=== PATIENT | male | born 1960 | race Caucasian/White ===

== ENCOUNTER → 2022-09-23 08:11 | Outpatient (BNVA) | payer OTHER, SELFPAY | PROVIDERS: PCP Internal Medicine; Visit Provider Hospitalist | DX: J98.4 Other disorders of lung (principal); J43.9 Emphysema, unspecified; R91.8 Other nonspecific abnormal finding of lung field; F17.210 Nicotine dependence, cigarettes, uncomplicated | CPT/HCPCS: 99202 ==

== ENCOUNTER 2022-12-08 09:45 | Outpatient (AMB) | payer OTHER, SELFPAY ==
[2022-12-08 09:55] VITALS: BP 110/70; PULSE 54; O2SAT 96; BMI 30.4
--- NOTE | 2022-12-08 09:55 | MHC.OFFVIS ---
Intake Vital Signs 12/08/22 09:55 Height 5 ft 11.5 in Weight 221 lb BMI 30.4 BP 110/70 Blood Pressure Location Lt brachial Position Standing Pulse 54 Pulse Source Pulse Oximeter Pulse Oximetry (%) 96 Oxygen Delivery Method Room Air Intake Visit Reasons: Abnormal CT Chest Intake Note: pt is here for follow up of ct scan, no issues feels good. Allergies No Known Allergies Allergy (Verified 09/23/22 08:30) Do you need a note to return to daycare/school/sports/work: No HPI HPI Comments History of Present Illness Details The patient is a 62-year-old gentleman with a history of tobacco dependency who apparently was in her usual state health until back in April when he started having some hemoptysis. The patient spontaneously improved in that required any antibiotics at that point. Subsequently June he did undergo CT scan of the chest at [facility] which I personally reviewed with him. He has multiple pulmonary nodules in the left hemithorax and some of them appear to be surrounded by ground-glass. The nodules varying size between 6-9 mm in size. In addition to that in the hilum appears to be some thickening around the distal left mainstem bronchus and the left upper lobe bronchi. This area is will be fine appears to be thicken with some sites narrowing of the airway. Based on the pulmonary nodules in the abnormal hilar density the patient did undergo a PET scan which we also personally reviewed. It appears that the hilar density had an SUV of 3.1 and also has some lymphadenopathy primarily in the cervical lymph nodes were about also had mild FDG activity. The actual pulmonary nodules may have been some below the accuracy of PET scan but all the nodules were with an SUV of 1.2. One of the nodules actually resolved. His hemoptysis has also resolved. Patient otherwise feels good. His only complaint is when he lays flat he gets short of breath. Moderate severity. He can and his belly and he does a lot better. The patient denies any significant daytime drowsiness. After reviewing all the data I did recommend the patient undergo endobronchial ultrasound bronchoscopy to better address the hilar soft tissue abnormality. Although, the patient is already scheduled to undergo surgery in [place]. In explained to the patient that she was still strongly that patient should undergo some type of visualization of the airways and that should be done by surgeon and should also consider getting microbiology for complete evaluation. The patient is already on Breo and also on rescue inhaler. I did recommend he undergo pulmonary function studies. At this point will have to wait for him to recover after surgery to be able to do them accurately. 12/08/2022 the patient is here for pulmonary follow-up visit. Since we last spoke he did follow-up with thoracic surgery. He underwent initially a resection I believe a wedge resection. I do not have the postop report at this time. And pathology was sent. Ultimately was stating the hospital had worsening hemoptysis and the patient was then taken back to the endoscopy suite in had a bronchoscopy. It was documented the attic growth in the left lower lobe although I do not have the pictures. He had a biopsy done unfortunate resulting in bleeding and therefore likely minimal amount of biopsies that were able to be done. Again I do not have the pathology. His hemoptysis has settled down. In I do not have any other results. Clinically the patient is still having some discomfort from his surgery. I am concerned that he still has is Croke that is potentially blocking part of his airway. Therefore, will have to await for will get the pathology and then reimage the area. He may need a repeat bronchoscopy to assess the area as well. The patient ultimately may need additional interventions to remove any growth there may be impacting his airway patency. From a respiratory status doing well we did go for brief walking oximetry was able to maintain a pulse ox 95%. [facility] Medical History (Updated 09/23/22 @ 09:05 by Philippe Palumbo MD) Emphysema lung Hilar density Pulmonary nodules Tobacco dependence Social History (Updated 12/08/22 @ 10:01 by CHRISTIANO Lopez) Patient Tobacco Use Status: Current everyday Tobacco user Tobacco use type: Cigarette and Cigar Cigarettes Per Day: 4 Years Smoked: 40 Years Review of Systems Const Denies weight loss Eyes Denies blurry vision ENT Denies bleeding gums and Denies epistaxis Card Reports chest pain Resp Denies change in phlegm color and Denies hemoptysis GI Reports no additional complaints Musc Reports no additional complaints Skin/Breast Denies rash Neuro Reports no additional complaints Endo Reports no additional complaints Prem/Lymph Denies easy bleeding, Denies easy bruising and Denies lymphadenopathy Aller/Immun Reports no additional complaints Physical Exam Vital Signs: Last Vital Signs Pulse 54 12/08/22 09:55 BP 110/70 12/08/22 09:55 Pulse Ox 96 12/08/22 09:55 Oxygen Delivery Method Room Air 12/08/22 09:55 BMI result Body Mass Index 30.4 Const General: comfortable HEENT Head: Yes normocephalic Neck Neck: Yes supple Chest Chest palpation & inspection: normal inspection of the chest Resp Effort & Inspection: normal respiratory effort Auscultation: clear to auscultation bilaterally Cardio Rate: regular rate Rhythm: regular rhythm Heart sounds: S1 normal heart sound present and S2 normal heart sound present GI Palpation (GI): Soft to palpation Extrem General: Yes no clubbing, cyanosis or edema Assessment & Plan Assessment & Plan (1) Hilar density: Code(s): J98.4 - Other disorders of lung (2) Pulmonary nodules: Code(s): R91.8 - Other nonspecific abnormal finding of lung field (3) Emphysema lung: Code(s): J43.9 - Emphysema, unspecified (4) Tobacco dependence: Code(s): F17.200 - Nicotine dependence, unspecified, uncomplicated Plan Need to review the op note and pathology for both the bronchoscopy and surgery. Ultimately, noted to have an endobronchial density in the LLL thatn may need additoinal intervention. continue Trelegy JOHN as needed PFTs once able Tobacco cessation F/U 2-3 months or sooner depending on the pathology Coding Level of Care Code Est Pt Level 4 (32776) Diagnoses Hilar density J98.4 Pulmonary nodules R91.8 Emphysema lung J43.9 Tobacco dependence F17.200 Time Spent (min) 20
== END 2022-12-08 10:46 | disposition home or self-care (01) ==
PROVIDERS: PCP Internal Medicine; Visit Provider Hospitalist
DX: J98.4 Other disorders of lung (principal); R91.8 Other nonspecific abnormal finding of lung field; J43.9 Emphysema, unspecified; F17.200 Nicotine dependence, unspecified, uncomplicated
CPT/HCPCS: 99214

== ENCOUNTER → 2022-12-08 09:45 | Outpatient (BNVA) | payer OTHER, SELFPAY | PROVIDERS: Visit Provider Hospitalist | DX: J98.4 Other disorders of lung (principal); J43.9 Emphysema, unspecified; R91.8 Other nonspecific abnormal finding of lung field; F17.210 Nicotine dependence, cigarettes, uncomplicated | CPT/HCPCS: 99212 ==

== ENCOUNTER 2023-02-03 10:28 | Outpatient (REF) | payer OTHER, SELFPAY ==
--- NOTE | ~2023-02-03 | XR_ITS ---
EXAMINATION: XR CHEST 2 VIEW CLINICAL INFORMATION: Difficulty breathing a few months ago COMPARISON: None TECHNIQUE: PA and lateral views of the chest obtained. FINDINGS: The lungs are clear. There are no pleural effusions. The cardiomediastinal silhouette is normal. Surgical clips are noted in the left axilla. XR/XR chest 2V IMPRESSION: No acute cardiopulmonary disease.
[2023-02-03 12:21] LABS: MANUAL DIFF FLAG NO
[2023-02-03 13:31] LABS: Basophils Percent Auto 0.4 % (0-2); Eosinophils Absolute Auto 0.3 X10*3/uL (0.0-0.4); Eosinophils Percent Auto 3.7 % (0-4); Hematocrit 50.9 % (42.0-52.0); Imm Gran Abs Auto 0.02 X10*3/uL (0.00-0.03); Imm Gran Pct Auto 0.3 % (0.0-0.4); Lymphocytes Absolute Auto 1.7 X10*3/uL (1.2-4.9); Lymphocytes Percent Auto 25.3 % (20-40); Mean Corpuscular HGB Conc 33.4 g/dl (31.0-36.0); Mean Corpuscular Hemoglobin 30.4 pg (27.0-33.0); Mean Corpuscular Volume 91.1 fL (80.0-98.0); Monocytes Absolute Auto 0.6 X10*3/uL (0.1-1.2); Monocytes Percent Auto 9.3 % (2-11); Neutrophils Absolute Auto 4.1 x10*3/uL (2.0-8.3); Platelet Count 187 X10*3/uL (160-400); Red Blood Count 5.59 X10*6/uL (4.60-5.80); Red Cell Distribution Width 12.9 % (11.0-16.0); White Blood Count 6.7 X10*3/uL (4.8-10.8)
[2023-02-03 14:21] LABS: Erythrocyte Sedimentation Rate 1 MM/HR (0-15)
[2023-02-05 06:04] LABS: Immunoglobulin E 103 kU/L (<OR=114)
[2023-02-07 18:09] LABS: Myeloperoxidase Antibody <1.0 AI; Proteinase 3 PR3 Antibodies <1.0 AI; Scleroderma 70 Antibody <1.0 NEG AI (<1.0 NEG)
[2023-02-08 11:35] LABS: Anti Nuclear Antibody Screen NEGATIVE (NEGATIVE)
[2023-02-11 14:53] LABS: Asperg fumigatus Precip Abs NEGATIVE (NEGATIVE); Micropoly faeni Abs NEGATIVE (NEGATIVE); Pigeon serum Abs NEGATIVE (NEGATIVE); Saccharo pora viridis Abs NEGATIVE (NEGATIVE); Thermo candidus Abs NEGATIVE (NEGATIVE); Thermoa vulgaris #1 NEGATIVE (NEGATIVE)
== END 2023-02-03 10:29 | disposition home or self-care (01) ==
LOC: HO.XRAY 10:28
PROVIDERS: PCP Internal Medicine; Visit Provider Hospitalist
DX: J98.4 Other disorders of lung (principal); R91.8 Other nonspecific abnormal finding of lung field; J43.2 Centrilobular emphysema; J84.9 Interstitial pulmonary disease, unspecified; F17.200 Nicotine dependence, unspecified, uncomplicated
CPT/HCPCS: 36415; 71046; 82164; 82785; 85025; 85652; 86021; 86038; 86235; 86331; 86606; 86609; 99212

== ENCOUNTER 2023-02-03 10:28 | Outpatient (AMB) | payer OTHER, SELFPAY ==
--- NOTE | 2023-02-03 10:32 | A.OFFVIS_ITS ---
Intake Vital Signs 02/03/23 10:33 Height 5 ft 11.5 in Weight 224 lb 13.944 oz BMI 30.9 BP 126/60 Blood Pressure Location Lt brachial Position Sitting Pulse 57 Pulse Source Pulse Oximeter Pulse Oximetry (%) 96 Oxygen Delivery Method Room Air Intake Visit Reasons: Abnormal CT Chest Advertising Account Representative Required: No Allergies No Known Allergies Allergy (Verified 02/03/23 10:35) HPI HPI Comments History of Present Illness Details The patient is a 62-year-old gentleman with a history of tobacco dependency who apparently was in her usual state health until back in April when he started having some hemoptysis. The patient spontaneously improved in that required any antibiotics at that point. Subsequently June he did undergo CT scan of the chest at [facility] which I personally revi ewed with him. He has multiple pulmonary nodules in the left hemithorax and some of them appear to be surrounded by ground-glass. The nodules varying size between 6-9 mm in size. In addition to that in the hilum appears to be some thickening around the distal left mainstem bronchus and the left upper lobe bronchi. This area is will be fine appears to be thicken with some sites narrowing of the airway. Based on the pulmonary nodules in the abnormal hilar density the patient did undergo a PET scan which we also personally reviewed. It appears that the hilar density had an SUV of 3.1 and also has some lymphadenopathy primarily in the cervical lymph nodes were about also had mild FDG activity. The actual pulmonary nodules may have been some below the accuracy of PET scan but all the nodules were with an SUV of 1.2. One of the nodules actually resolved. His hemoptysis has also resolved. Patient otherwise feels good. His only complaint is when he lays flat he gets short of breath. Moderate severity. He can and his belly and he does a lot better. The patient denies any significant daytime drowsiness. After reviewing all the data I did recommend the patient undergo endobronchial ultrasound bronchoscopy to better address the hilar soft tissue abnormality. Although, the patient is already scheduled to undergo surgery in [place]. In explained to the patient that she was still strongly that patient should undergo some type of visualization of the airways and that should be done by surgeon and should also consider getting microbiology for complete evaluation. The patient is already on Breo and also on rescue inhaler. I did recommend he undergo pulmonary function studies. At this point will have to wait for him to recover after surgery to be able to do them accurately. 12/08/2022 the patient is here for pulmon eleanor follow-up visit. Since we last spoke he did follow-up with thoracic surgery. He underwent initially a resection I believe a wedge resection. I do not have the postop report at this time. And pathology was sent. Ultimately was stating the hospital had worsening hemoptysis and the patient was then taken back to the endoscopy suite in had a bronchoscopy. It was documented the attic growth in the left lower lobe although I do not have the pictures. He had a biopsy done unfortunate resulting in bleeding and therefore likely minimal amount of biopsies that were able to be done. Again I do not have the pathology. His hemoptysis has settled down. In I do not have any other results. Clinically the patient is still having some discomfort from his surgery. I am concerned that he still has is Croke that is potentially blocking part of his airway. Therefore, will have to await for will get the pathology and then reimage the area. He may need a repeat bronchoscopy to assess the area as well. The patient ultimately may need additional interventions to remove any growth there may be impacting his airway patency. From a respiratory status doing well we did go for brief walking oximetry was able to maintain a pulse ox 95%. 02/03/2023 the patient is here for a pulmonary follow-up visit. He has been complaining worsening dyspnea. Moderate severity. Worse when he lays flat. Typically during the day he feels okay. He has been using the inhaler Trelegy with good response. He denies any lower extremity edema. Patient denies any further hemoptysis. Unfortunately, we have not received all the pathology from her into the hospital. The patient did undergo initially thoracotomy and did have a biopsy of left hilar density. Apparently speaking to the thoracic surgeon this was not cancer. It is described as a interstitial lung disease. However, we will need the pathology to further address the type of interstitial lung disease. In addition to that he did have the bronchoscopy that demonstrated the endobronchial lesion that appeared to demonstrate an area of fibro inflammatory disease. No evidence of any granulomas. On examination he did have diminished breath sounds at the left base along with some crackles. I did request a chest x-ray and demonstrated an elevated left hemidiaphragm with some slight haziness in the left base. No evidence of any definitive pleural effusion there. While we wait for the pathology results will go ahead a request blood work to assess secondary causes for underlying interstitial lung disease. The patient will also start a short course of prednisone and will continue with respiratory therapy. In view of the crackles will also treating for a lower respiratory infection. The patient will return with a chest x-ray. Ultimately once the review the pathology able to will decide when to repeat his CT scan. the patient also will need to have pulmonary function studies when he returns. [facility] Medical History (Updated 02/03/23 @ 22:44 by Philippe Palumbo MD) ILD (interstitial lung disease) Tobacco dependence Emphysema lung Pulmonary nodules Hilar density Social History (Updated 12/08/22 @ 10:01 by CHRISTIANO Lopez) Patient Tobacco Use Status: Current everyday Tobacco user Tobacco use type: Cigarette and Cigar Cigarettes Per Day: 4 Years Smoked: 40 Years Review of Systems Const Denies weight loss Eyes Denies blurry vision ENT Denies bleeding gums and Denies epistaxis Card Denies chest pain, Reports dyspnea and Reports orthopnea Resp Denies change in phlegm color, Denies hemoptysis and Reports dyspnea GI Reports no additional complaints Musc Reports no additional complaints Skin/Breast Denies rash Neuro Reports no additional complaints Endo Reports no additional complaints Prem/Lymph Denies easy bleeding, Denies easy bruising and Denies lymphadenopathy Aller/Immun Reports no additional complaints Physical Exam Vital Signs: Last Vital Signs Pulse 57 02/03/23 10:33 BP 126/60 02/03/23 10:33 Pulse Ox 96 02/03/23 10:33 Oxygen Delivery Method Room Air 02/03/23 10:33 BMI result Body Mass Index 30.9 Const General: comfortable HEENT Head: Yes normocephalic Neck Neck: Yes supple Chest Chest palpation & inspection: normal inspection of the chest Resp Effort & Inspection: normal respiratory effort Auscultation: crackles on the left at the base and diminished lung sounds on the left in the lower lung kim Cardio Rate: regular rate Rhythm: regular rhythm Heart sounds: S1 normal heart sound present and S2 normal heart sound present GI Palpation (GI): Soft to palpation Extrem General: Yes no clubbing, cyanosis or edema Assessment & Plan Assessment & Plan (1) Hilar density: Code(s): J98.4 - Other disorders of lung (2) Pulmonary nodules: Code(s): R91.8 - Other nonspecific abnormal finding of lung field (3) Emphysema lung: Code(s): J43.9 - Emphysema, unspecified Qualifiers: Emphysema type: centrilobular Qualified Code(s): J43.2 - Centrilobular emphysema (4) Tobacco dependence: Code(s): F17.200 - Nicotine dependence, unspecified, uncomplicated (5) ILD (interstitial lung disease): Code(s): J84.9 - Interstitial pulmonary disease, unspecified Plan Need to review the op note and pathology for both the surgery described as an ILD. Ultimately, noted to have an endobronchial density in the LLL thatn may need additoinal intervention. continue Trelegy JOHN as needed PFTs Bloodwork start low dose prednisone start Doxycycline Tobacco cessation, needs to quit F/U 4-6 weeks Orders: Orders KANDIS Reflex Titer and Pattern Today J84.9 - Interstitial pulmonary disease, unspecified Erythrocyte Sedimentation Rate Today J84.9 - Interstitial pulmonary disease, unspecified Scleroderma 70 Antibody Today J84.9 - Interstitial pulmonary disease, unspecified Immunoglobulin E Today J84.9 - Interstitial pulmonary disease, unspecified PFT pulmonary function test Today J84.9 - Interstitial pulmonary disease, unspecified, R91.8 - Other nonspecific abnormal finding of lung field XR chest 2V Today J98.4 - Other disorders of lung Complete Blood Count Auto Diff Today J84.9 - Interstitial pulmonary disease, unspecified ANCA Vasculitides Today J84.9 - Interstitial pulmonary disease, unspecified Angiotensin Converting Enzyme Today J84.9 - Interstitial pulmonary disease, unspecified Hypersensitive Pneumonitis Prf Today J84.9 - Interstitial pulmonary disease, unspecified, R91.8 - Other nonspecific abnormal finding of lung field XR chest 2V Today J84.9 - Interstitial pulmonary disease, unspecified, R91.8 - Other nonspecific abnormal finding of lung field Medications: New doxycycline monohydrate 100 mg PO BID 14 days 28 tabs 0RF prednisone PO daily; Take 2 Tabs daily x 10 days, then 1 tab daily x 10 days 20 days 30 tabs 0RF Coding Level of Care Code Est Pt Level 5 (20602) Diagnoses Hilar density J98.4 Pulmonary nodules R91.8 Centrilobular emphysema J43.2 Emphysema type: centrilobular Tobacco dependence F17.200 ILD (interstitial lung disease) J84.9 Time Spent (min) 60
[2023-02-03 10:33] VITALS: BP 126/60; PULSE 57; O2SAT 96; BMI 30.9
== END 2023-02-03 11:07 | disposition home or self-care (01) ==
PROVIDERS: PCP Internal Medicine; Visit Provider Hospitalist
DX: J98.4 Other disorders of lung (principal); R91.8 Other nonspecific abnormal finding of lung field; J43.2 Centrilobular emphysema; F17.210 Nicotine dependence, cigarettes, uncomplicated; J84.9 Interstitial pulmonary disease, unspecified
CPT/HCPCS: 99215

== ENCOUNTER 2023-02-21 08:17 | Outpatient (REF) | payer OTHER, SELFPAY ==
--- NOTE | 2023-02-21 09:17 | PFT_ITS ---
INDICATION: COPD. SPIROMETRY: FEV1 to FVC is 62% with an FEV1 of 1.39 L, which is 36% predicted and FVC of 2.25 L, which is 44% predicted. No significant response to bronchodilators noted. Maximum voluntary ventilation is 32% predicted. LUNG VOLUMES: Total lung capacity 65% predicted with an expiratory reserve volume of 29% predicted. DIFFUSION CAPACITY: DLCO of 49% predicted. COMPARISONS: None. INTERPRETATION: There is a mixed obstructive/restrictive ventilatory defect, consistent with severe COPD, and moderate restrictive lung disease. In addition to this, there is no significant response to bronchodilators noted, and a severe decrease in the maximum voluntary ventilation secondary to deconditioning. Again, lung volumes do demonstrate a moderate restrictive ventilatory defect, consistent with the restrictive lung disease, likely secondary to underlying interstitial lung disease. Also has a significantly decreased expiratory reserve volume, secondary to likely the elevated BMI. The patient does have a moderate diffusion impairment secondary to the above. Clinical correlation is warranted. MD ODALYS Roberts/MODZaida / [id number] MTDD
== END 2023-02-21 08:18 | disposition home or self-care (01) ==
LOC: HO.RESP 08:17
PROVIDERS: PCP Internal Medicine; Visit Provider Hospitalist
DX: J98.4 Other disorders of lung (principal); R91.8 Other nonspecific abnormal finding of lung field
CPT/HCPCS: 94010; 94727; 94729

== ENCOUNTER → 2023-02-21 09:17 | Outpatient (BNV) | payer OTHER, SELFPAY | PROVIDERS: PCP Internal Medicine; Visit Provider Hospitalist | DX: J84.9 Interstitial pulmonary disease, unspecified (principal) | CPT/HCPCS: 94060; 94727; 94729 ==

== ENCOUNTER → 2023-09-21 09:44 | Outpatient (REF) | payer MEDICAID, SELFPAY | LOC: HO.SL 09:44 | PROVIDERS: PCP Internal Medicine; Visit Provider Hospitalist | DX: Z13.89 Encounter for screening for other disorder (principal) ==

== ENCOUNTER 2023-10-18 09:32 | Outpatient (AMB) | payer MEDICAID, SELFPAY ==
[2023-10-18 09:44] VITALS: PULSE 50; O2SAT 96; BMI 30.9
--- NOTE | 2023-10-18 09:44 | A.OFFVIS_ITS ---
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 The patient spontaneously improved in that required any antibiotics at that point. Subsequently June he did undergo CT scan of the chest at [facility] which I personally reviewed with him. He has multiple pulmonary nodules in the left hemithorax and some of them appear to be surrounded by ground-glass. The nodules varying size between 6-9 mm in size. In addition to that in the hilum appears to be some thickening around the distal left mainstem bronchus and the left upper lobe bronchi. This area is will be fine appears to be thicken with some sites narrowing of the airway. Based on the pulmonary nodules in the abnormal hilar density the patient did undergo a PET scan which we also personally reviewed. It appears that the hilar density had an SUV of 3.1 and also has some lymphadenopathy primarily in the cervical lymph nodes were about also had mild FDG activity. The actual pulmonary nodules may have been some below the accuracy of PET scan but all the nodules were with an SUV of 1.2. One of the nodules actually resolved. His hemoptysis has also resolved. Patient otherwise feels good. His only complaint is when he lays flat he gets short of breath. Moderate severity. He can and his belly and he does a lot better. The patient denies any significant daytime drowsiness. After reviewing all the data I did recommend the patient undergo endobronchial ultrasound bronchoscopy to better address the hilar soft tissue abnormality. Although, the patient is already scheduled to undergo surgery in [place]. In explained to the patient that she was still strongly that patient should undergo some type of visualization of the airways and that should be done by surgeon and should also consider getting microbiology for complete evaluation. The patient is already on Breo and also on rescue inhaler. I did recommend he undergo pulmonary function studies. At this point will have to wait for him to recover after surgery to be able to do them accurately. 12/08/2022 the patient is here for pulmonary follow-up visit. Since we last spoke he did follow-up with thoracic surgery. He underwent initially a resection I believe a wedge resection. I do not have the postop report at this time. And pathology was sent. Ultimately was stating the hospital had worsening hemoptysis and the patient was then taken back to the endoscopy suite in had a bronchoscopy. It was documented the attic growth in the left lower lobe although I do not have the pictures. He had a biopsy done unfortunate resulting in bleeding and therefore likely minimal amount of biopsies that were able to be done. Again I do not have the pathology. His hemoptysis has settled down. In I do not have any other results. Clinically the patient is still having some discomfort from his surgery. I am concerned that he still has is Croke that is potentially blocking part of his airway. Therefore, will have to await for will get the pathology and then reimage the area. He may need a repeat bronchoscopy to assess the area as well. The patient ultimately may need additional interventions to remove any growth there may be impacting his airway patency. From a respiratory status doing well we did go for brief walking oximetry was able to maintain a pulse ox 95%. 02/03/2023 the patient is here for a pulmonary follow-up visit. He has been complaining worsening dyspnea. Moderate severity. Worse when he lays flat. Typically during the day he feels okay. He has been using the inhaler Trelegy with good response. He denies any lower extremity edema. Patient denies any further hemoptysis. Unfortunately, we have not received all the pathology from her into the hospital. The patient did undergo initially thoracotomy and did have a biopsy of left hilar density. Apparently speaking to the thoracic surgeon this was not cancer. It is described as a interstitial lung disease. However, we will need the pathology to further address the type of interstitial lung disease. In addition to that he did have the bronchoscopy that demonstrated the endobronchial lesion that appeared to demonstrate an area of fibro inflammatory disease. No evidence of any granulomas. On examination he did have diminished breath sounds at the left base along with some crackles. I did request a chest x-ray and demonstrated an elevated left hemidiaphragm with some slight haziness in the left base. No evidence of any definitive pleural effusion there. While we wait for the pathology results will go ahead a request blood work to assess secondary causes for underlying interstitial lung disease. The patient will also start a short course of prednisone and will co ntinue with respiratory therapy. In view of the crackles will also treating for a lower respiratory infection. The patient will return with a chest x-ray. Ultimately once the review the pathology able to will decide when to repeat his CT scan. the patient also will need to have pulmonary function studies when he returns. 10/18/2023 the patient is here for a pulmonary follow-up visit. Overall he is breathing some better. He has been cutting down the smoking which is excellent. Denies any hemoptysis. Still having some shortness breath with activity. [id number] severity. The patient has been responding well to the Breo inhaler. Not sure why he has not on long-acting muscarinic antagonist. He does have severe COPD. Therefore will add the Incruse to the Breo. He tolerates carley t well then we can also consider switching over to Trelegy. In regards to the pulmonary nodules, his last CT scan was back in the winter of 2022. It then followed up with a PET scan which demonstrated minimal activity. He is due for another CT scan specially with the size of the pulmonary nodules. The patient also has having daytime drowsiness. His [place] score is elevated 11/24. He did undergo home sleep study but it did not record enough data so therefore he is going to have a repeat study at this time. The patient follow-up in 3 months and we can view both the CT scan his sleep study. If he has not issues prior to that he will call for an earlier assessment. [facility] Medical History (Updated 08/12/23 @ 13:09 by Philippe Palumbo MD) JESUS (obstructive sleep apnea) ILD (interstitial lung disease) Tobacco dependence Emphysema lung Pulmonary nodules Hilar density Social History (Updated 12/08/22 @ 10:01 by CHRISTIANO Lopez) Patient Tobacco Use Status: Current everyday Tobacco user Tobacco use type: Cigarette and Cigar Cigarettes Per Day: 4 Years Smoked: 40 Years Review of Systems Const Reports daytime sleepiness and Denies weight loss Eyes Denies blurry vision ENT Denies bleeding gums and Denies epistaxis Card Denies chest pain, Reports dyspnea on exertion and Reports orthopnea Resp Denies change in phlegm color, Reports cough, Denies hemoptysis and Reports dyspnea on exertion GI Reports no additional complaints Musc Reports no additional complaints Skin/Breast Denies rash Neuro Reports no additional complaints Endo Reports no additional complaints Prem/Lymph Denies easy bleeding, Denies easy bruising and Denies lymphadenopathy Aller/Immun Reports no additional complaints Physical Exam Vital Signs: Last Vital Signs Pulse 50 10/18/23 09:44 Pulse Ox 96 10/18/23 09:44 Oxygen Delivery Method Room Air 10/18/23 09:44 BMI result Body Mass Index 30.9 Const General: comfortable HEENT Head: Yes normocephalic Neck Neck: Yes supple Chest Chest palpation & inspection: normal inspection of the chest Resp Effort & Inspection: normal respiratory effort Auscultation: diminished lung sounds on the left in the lower lung kim Cardio Rate: regular rate Rhythm: regular rhythm Heart sounds: S1 normal heart sound present and S2 normal heart sound present GI Palpation (GI): Soft to palpation Extrem General: Yes no clubbing, cyanosis or edema Assessment & Plan Assessment & Plan (1) Hilar density: Code(s): J98.4 - Other disorders of lung Category: Medical (2) Pulmonary nodules: Code(s): R91.8 - Other nonspecific abnormal finding of lung field Category: Medical (3) Emphysema lung: Code(s): J43.9 - Emphysema, unspecified Category: Medical Qualifiers: Emphysema type: centrilobular Qualified Code(s): J43.2 - Centrilobular emphysema (4) Tobacco dependence: Code(s): F17.200 - Nicotine dependence, unspecified, uncomplicated Category: Medical (5) ILD (interstitial lung disease): Code(s): J84.9 - Interstitial pulmonary disease, unspecified Category: Medical Plan CT chest continue Breo Add Incruse JOHN as needed repeat home PSG Tobacco cessation, needs to quit, has been cutting down F/U 3-4 months Orders: Orders CT chest wo IV con Today J98.4 - Other disorders of lung, R91.8 - Other nonspecific abnormal finding of lung field Medications: New umeclidinium 62.5 mcg/actuation (Incruse Ellipta) 1 inh inhalation DAILY 30 ea 11RF 30 days J45.909 - Unspecified asthma, uncomplicated Coding Level of Care Code Est Pt Level 4 (92346) Diagnoses Hilar density J98.4 Pulmonary nodules R91.8 Centrilobular emphysema J43.2 Emphysema type: centrilobular Tobacco dependence F17.200 ILD (interstitial lung disease) J84.9 Time Spent (min) 17
== END 2023-10-18 10:08 | disposition home or self-care (01) ==
PROVIDERS: PCP Internal Medicine; Referring Provider Internal Medicine; Visit Provider Hospitalist
DX: J98.4 Other disorders of lung (principal); R91.8 Other nonspecific abnormal finding of lung field; J43.2 Centrilobular emphysema; F17.200 Nicotine dependence, unspecified, uncomplicated; J84.9 Interstitial pulmonary disease, unspecified
CPT/HCPCS: 99214

== ENCOUNTER → 2023-10-18 09:32 | Outpatient (BNVA) | payer MEDICAID, SELFPAY | PROVIDERS: PCP Internal Medicine; Visit Provider Hospitalist | DX: J98.4 Other disorders of lung (principal); J43.2 Centrilobular emphysema; J84.9 Interstitial pulmonary disease, unspecified; R91.8 Other nonspecific abnormal finding of lung field; F17.210 Nicotine dependence, cigarettes, uncomplicated | CPT/HCPCS: 99212 ==

== ENCOUNTER 2023-11-25 08:25 | Outpatient (REF) | payer MEDICAID, SELFPAY ==
--- NOTE | ~2023-11-25 | CT_ITS ---
EXAMINATION: CT CHEST WITHOUT CONTRAST CLINICAL INFORMATION: Other nonspecific abnormal finding of lung kim; pulmonary nodules/hilar density. COMPARISON: No prior CT exam. Chest x-ray 02/03/2023. TECHNIQUE: Multidetector volumetric CT imaging of the chest was done. Axial MIP volume rendering provided. Sagittal and coronal reformatted images were obtained. This CT examination was performed using dose optimization techniques as appropriate, variously including the following: *Automated exposure control *Adjustment of mA and/or kV according to patient size (this includes techniques or standardized protocols for targeted exams where dose is matched to indication/reason for exam; i.e. extremities or head) *Use of iterative reconstruction technique DLP: 239 mGy-cm Please note, due to [employer] technical systems, staffing, and internal issues, this examination was not available for dictation until 12/30/2023. FINDINGS: PEER TUTOR: Elevated left hemidiaphragm. Surgical clips abutting the left superior hilum, likely within the anterior mediastinum. No hilar mass is appreciated. LUNGS: -There has been a partial left upper lobe resection with suture line seen along the medial upper mediastinal fat and surgical clips present in the left superior mediastinal/hilar region. -There is moderate central and paraseptal emphysema, with upper lobe predominance. -There are several nodules in the residual left upper lobe and lingula, for example, an anterior left upper lobe lesion measures 1.1 x 0.8 cm (series 5, image 159). Immediately below this, in the same general region, is a groundglass nodule measuring 1.1 cm, with a solid component anteriorly measuring 4 mm (series 5, image 171). At the same level, in the posterior segment there is a nodule measuring 9 x 6 mm (series 5, image 172). Just medial and inferior to this in the same region is a 6 x 4 mm nodule (series 5, image 178). In the more inferior lateral left upper lobe/lingula, there is a 1.0 x 0.7 cm irregular nodule with subtle groundglass halo (series 5, image 227). In the central inferior lingula, there is a 4 mm nodule (series 5, image 263). In the most inferior left upper lobe, posterior aspect, there is a 6 mm solid nodule (series 5, image 318). Inferior to this, there is a 6 mm solid nodule in the posterior left upper lobe inferiorly (series 5, image 346). These nodules are all suspicious and PET/CT should be considered. -There is a generalized region of groundglass attenuation in the left lower lobe abutting the elevated left hemidiaphragm, most likely microatelectasis changes although other etiologies are not excluded. -In the minor fissure, inferior right upper lobe, there is a 4 mm nodule, most likely an intrapulmonary lymph node (series 5, image 368). There are a few tiny scattered bilateral 1-2 mm parenchymal nodules present, nonspecific. -Mild bronchial wall thickening is present throughout both lungs, with mild associated bronchiectasis in the left lower lobe, findings suggestive of bronchial inflammation. The trachea and major bronchi are patent. PLEURA: There is no pleural effusion. No pleural mass or thickening. MEDIASTINUM: -Imaged thyroid is normal. -Normal aortic branching pattern. Aorta is minimally calcified but normal in caliber and course. -Main pulmonary artery is prominent, measuring up to 3.3 cm, suggesting possible mild pulmonary hypertension. The left and right main pulmonary arteries are also somewhat prominent. -Heart size is normal. No pericardial effusion. -Esophagus is normal. -There is no pathologic mediastinal or hilar adenopathy identified. There are small subcentimeter nodes, presumably reactive although nonspecific. CORONARY ARTERY CALCIFICATION: Mild LAD and circumflex calcifications. AXILLA/CHEST WALL: No mass or lymphadenopathy. Surgical clips present in the left lower axilla. UPPER ABDOMEN: There are left kidney upper pole simple cysts. Stomach is decompressed. Normal adrenal glands. OSSEOUS STRUCTURES: No suspicious lytic or blastic bone lesions. CT/CT chest wo IV con IMPRESSION: 1. Numerous pulmonary nodules in the residual left upper lobe measuring up to 1.1 x 0.8 cm. Given findings, PET CT should be considered or direct tissue sampling. Short interval follow-up also recommended. 2. Prior wedge resection left upper lobe medially with upward retraction of the left hemidiaphragm and mild left lung volume loss. 3. Mild to moderate centrilobular and paraseptal emphysema. Diffuse small airway thickening suggesting bronchitis. 4. No pathologic lymphadenopathy identified. There are subcentimeter mediastinal nodes present. 5. Geographic groundglass area in the left lower lobe, nonspecific but presumably microatelectasis from elevated left hemidiaphragm and volume loss. Attention on follow-up recommended. 6. Prominent but not pathologically enlarged main pulmonary artery. 7. Surgical clips in the left lower axilla. 8. Refer to the body the report for additional ancillary findings. Fleischner guidelines were followed. Findings were relayed to Dr. Palumbo via secure text at 9:53 AM, 12/30/2023
== END 2023-11-25 08:26 | disposition home or self-care (01) ==
LOC: HO.CT 08:25
PROVIDERS: PCP Internal Medicine; Visit Provider Hospitalist
DX: R91.8 Other nonspecific abnormal finding of lung field (principal); J98.4 Other disorders of lung
CPT/HCPCS: 71250

== ENCOUNTER → 2023-11-25 08:27 | Outpatient (BNV) | payer MEDICAID, SELFPAY | PROVIDERS: PCP Internal Medicine; Visit Provider Radiology Diagnostic Radiology | DX: R91.8 Other nonspecific abnormal finding of lung field (principal); J98.4 Other disorders of lung | CPT/HCPCS: 71250 ==

== ENCOUNTER 2024-01-18 10:09 | Outpatient (AMB) | payer MEDICAID, SELFPAY ==
--- NOTE | 2024-01-18 10:24 | A.OFFVIS_ITS ---
Vital Signs 01/18/24 10:25 Height 5 ft 11.5 in Weight 225 lb BMI 30.9 BP 118/68 Blood Pressure Location Lt brachial Position Sitting Pulse 52 Pulse Source Pulse Oximeter Pulse Oximetry (%) 97 Oxygen Delivery Method Room Air Intake Visit Reasons: Sleep apnea Legislative Director Required: No Allergies No Known Allergies Allergy (Verified 01/18/24 10:27) HPI Comments Details: The patient is a 63-year-old gentleman with a history of tobacco dependency who apparently was in her usual state health until back in April when he started having some hemoptysis. The patient spontaneously improved in that required any antibiotics at that point. Subsequently June he did undergo CT scan of the chest at [facility] which I personally reviewed with him. He has multiple pulmonary nodules in the left hemithorax and some of them appear to be surrounded by ground-glass. The nodules varying size between 6-9 mm in size. In addition to that in the hilum appears to be some thickening around the distal left mainstem bronchus and the left upper lobe bronchi. This area is will be fine appears to be thicken with some sites narrowing of the airway. Based on the pulmonary nodules in the abnormal hilar density the patient did undergo a PET scan which we also personally reviewed. It appears that the hilar density had an SUV of 3.1 and also has some lymphadenopathy primarily in the cervical lymph nodes were about also had mild FDG activity. The actual pulmonary nodules may have been some below the accuracy of PET scan but all the nodules were with an SUV of 1.2. One of the nodules actually resolved. His hemoptysis has also resolved. Patient otherwise feels good. His only complaint is when he lays flat he gets short of breath. Moderate severity. He can and his belly and he does a lot better. The patient denies any significant daytime drowsiness. After reviewing all the data I did recommend the patient undergo endobronchial ultrasound bronchoscopy to better address the hilar soft tissue abnormality. Although, the patient is already scheduled to undergo surgery in [place]. In explained to the patient that she was still strongly that patient should undergo some type of visualization of the airways and that should be done by surgeon and should also consider getting microbiology for complete evaluation. The patient is already on Breo and also on rescue inhaler. I did recommend he undergo pulmonary function studies. At this point will have to wait for him to recover after surgery to be able to do them accurately. 12/08/2022 the patient is here for pulmonary follow-up visit. Since we last spoke he did follow-up with thoracic surgery. He underwent initially a resection I believe a wedge resection. I do not have the postop report at this time. And pathology was sent. Ultimately was stating the hospital had worsening hemoptysis and the patient was then taken back to the endoscopy suite in had a bronchoscopy. It was documented the attic growth in the left lower lobe although I do not have the pictures. He had a biopsy done unfortunate resulting in bleeding and therefore likely minimal amount of biopsies that were able to be done. Again I do not have the pathology. His hemoptysis has settled down. In I do not have any other results. Clinically the patient is still having some discomfort from his surgery. I am concerned that he still has is Croke that is potentially blocking part of his airway. Therefore, will have to await for will get the pathology and then reimage the area. He may need a repeat bronchoscopy to assess the area as well. The patient ultimately may need additional interventions to remove any growth there may be impacting his airway patency. From a respiratory status doing well we did go for brief walking oximetry was able to maintain a pulse ox 95%. 02/03/2023 the patient is here for a pulmonary follow-up visit. He has been complaining worsening dyspnea. Moderate severity. Worse when he lays flat. Typically during the day he feels okay. He has been using the inhaler Trelegy with good response. He denies any lower extremity edema. Patient denies any further hemoptysis. Unfortunately, we have not received all the pathology from her into the hospital. The patient did undergo initially thoracotomy and did have a biopsy of left hilar density. Apparently speaking to the thoracic surgeon this was not cancer. It is described as a interstitial lung disease. However, we will need the pathology to further address the type of interstitial lung disease. In addition to that he did have the bronchoscopy that demonstrated the endobronchial lesion that appeared to demonstrate an area of fi bro inflammatory disease. No evidence of any granulomas. On examination he did have diminished breath sounds at the left base along with some crackles. I did request a chest x-ray and demonstrated an elevated left hemidiaphragm with some slight haziness in the left base. No evidence of any definitive pleural effusion there. While we wait for the pathology results will go ahead a request blood work to assess secondary causes for underlying interstitial lung disease. The patient will also start a short course of prednisone and will continue with respiratory therapy. In view of the crackles will also treating for a lower respiratory infection. The patient will return with a chest x-ray. Ultimately once the review the pathology able to will decide when to repeat his CT scan. the patient also will need to have pulmonary function studies when he returns. 10/18/2023 the patient is here for a pulmonary follow-up visit. Overall he is breathing some better. He has been cutting down the smoking which is excellent. Denies any hemoptysis. Still having some shortness breath with activity. [id number] severity. The patient has been responding well to the Breo inhaler. Not sure why he has not on long-acting muscarinic antagonist. He does have severe COPD. Therefore will add the Incruse to the Breo. He tolerates that well then we can also consider switching over to Trelegy. In regards to the pulmonary nodules, his last CT scan was back in the winter of 2022. It then followed up with a PET scan which demonstrated minimal activity. He is due for another CT scan specially with the size of the pulmonary nodules. The patient also has having daytime drowsiness. His Scotia score is elevated 11/24. He did undergo home sleep study but it did not record enough data so therefore he is going to have a repeat study at this time. The patient follow-up in 3 months and we can view both the CT scan his sleep study. If he has not issues prior to that he will call for an earlier assessment. 01/18/2024 the patient is here for a pulmonary follow-up visit. Overall he is doing about the same. He still smoking about 7-8 cigarettes a day. We did talk about his CT scan that he had in 12/10/2023. Appears to have pulmonary nodules in the left upper lobe. Unfortunately this CT scan was done here was not compared to the CT scans in the PET scan done at [facility]. We did compare it appears to be waxing and waning. Patient does have postoperative changes now since he has had with wedge resection of the largest nodule this was done at the [facility]. 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 In addition to that he had a bronchoscopy with biopsies demonstrating areas of chronic inflammation and scarring. No evidence of any malignancy with either the wedge resection or the bronchoscopy. Therefore, although he has underlying pulmonary nodules that are slightly greater than cm in size. I think it is reasonable to work on the smoking since allow these changes are smoking-related and hopefully we see improvement. He is willing to try Chantix at this time. He also successful with hypnosis in the past. Will go ahead and start Chantix monitor closely for any depressive symptoms. Hopefully we can get him to quit and will go ahead and plan to repeat the CT scan sometime in 05/11/2024 with hopes that we see improvement of those waxing and waning nodular densities. [facility] Medical History (Updated 01/18/24 @ 21:52 by Philippe Palumbo MD) JESUS (obstructive sleep apnea) ILD (interstitial lung disease) Tobacco dependence Emphysema lung Pulmonary nodules Hilar density Social History (Updated 12/08/22 @ 10:01 by Anali Duarte [facility]) Patient Tobacco Use Status: Current everyday Tobacco user Tobacco use type: Cigarette and Cigar Cigarettes Per Day: 4 Years Smoked: 40 Years Review of Systems Const Denies weight loss Eyes Denies blurry vision ENT Denies bleeding gums and Denies epistaxis Card Denies chest pain and Reports dyspnea on exertion Resp Denies change in phlegm color, Reports cough, Denies hemoptysis and Reports dyspnea on exertion GI Reports no additional complaints Musc Reports no additional complaints Skin/Breast Denies rash Neuro Reports no additional complaints Endo Reports no additional complaints Prem/Lymph Denies easy bleeding, Denies easy bruising and Denies lymphadenopathy Aller/Immun Reports no additional complaints Physical Exam Vital Signs: Last Vital Signs Pulse 52 01/18/24 10:25 BP 118/68 01/18/24 10:25 Pulse Ox 97 01/18/24 10:25 Oxygen Delivery Method Room Air 01/18/24 10:25 BMI result Body Mass Index 30.9 Const General: comfortable HEENT Head: Yes normocephalic Neck Neck: Yes supple Chest Chest palpation & inspection: normal inspection of the chest Resp Effort & Inspection: normal respiratory effort Auscultation: diminished lung sounds on the left in the lower lung kim Cardio Rate: regular rate Rhythm: regular rhythm Heart sounds: S1 normal heart sound present and S2 normal heart sound present GI Palpation (GI): Soft to palpation Extrem General: Yes no clubbing, cyanosis or edema Results Reviewed Results Reviewed: personally [place]20[place] [facility] [place] chest 06/2023 and PET 07/2023 with multiple pulmonary nodules >1cm primarily EKTA where he had the wedge resection Assessment & Plan Assessment & Plan (1) Hilar density: Code(s): J98.4 - Other disorders of lung Category: Medical (2) Pulmonary nodules: Comment: PET 07/2023 with mild activity s/p bronchoscopy with biopsy and wedge resection both negative for CA Code(s): R91.8 - Other nonspecific abnormal finding of lung field Category: Medical (3) Emphysema lung: Code(s): J43.9 - Emphysema, unspecified Category: Medical Qualifiers: Emphysema type: centrilobular Qualified Code(s): J43.2 - Centrilobular emphysema (4) Tobacco dependence: Code(s): F17.200 - Nicotine dependence, unspecified, uncomplicated Category: Medical (5) ILD (interstitial lung disease): Comment: DIP based on biopsy Code(s): J84.9 - Interstitial pulmonary disease, unspecified Category: Medical Plan Repeat CT chest 04/2024 continue Breo continue Incruse JOHN as needed Tobacco cessation, start Chantix starter pack, then should continue maintenace F/U 04/[address] chest Orders: Orders CT chest wo IV con 04/23/24 R91.8 - Other nonspecific abnormal finding of lung field Medications: New varenicline (Chantix Starting Month Box) PO PER PKG DIR 42 ea 0RF Coding Level of Care Code Est Pt Level 5 (75044) Diagnoses Hilar density J98.4 Pulmonary nodules R91.8 Centrilobular emphysema J43.2 Emphysema type: centrilobular Tobacco dependence F17.200 ILD (interstitial lung disease) J84.9 Time Spent (min) 30
[2024-01-18 10:25] VITALS: BP 118/68; PULSE 52; O2SAT 97; BMI 30.9
== END 2024-01-18 10:56 | disposition home or self-care (01) ==
PROVIDERS: PCP Internal Medicine; Referring Provider Internal Medicine; Visit Provider Hospitalist
DX: J98.4 Other disorders of lung (principal); R91.8 Other nonspecific abnormal finding of lung field; J43.2 Centrilobular emphysema; F17.210 Nicotine dependence, cigarettes, uncomplicated; J84.9 Interstitial pulmonary disease, unspecified
CPT/HCPCS: 99214

== ENCOUNTER → 2024-01-18 10:09 | Outpatient (BNVA) | payer MEDICAID, SELFPAY | PROVIDERS: PCP Internal Medicine; Visit Provider Hospitalist | DX: J43.2 Centrilobular emphysema (principal); J84.9 Interstitial pulmonary disease, unspecified; J98.4 Other disorders of lung; R91.8 Other nonspecific abnormal finding of lung field; F17.210 Nicotine dependence, cigarettes, uncomplicated | CPT/HCPCS: 99212 ==

== ENCOUNTER → 2024-01-24 10:40 | Outpatient (REF) | payer MEDICAID, SELFPAY | LOC: HO.SL 10:40 | PROVIDERS: PCP Internal Medicine; Visit Provider Hospitalist | DX: G47.33 Obstructive sleep apnea (adult) (pediatric) (principal) | CPT/HCPCS: 95806 ==

== ENCOUNTER → 2024-01-24 10:51 | Outpatient (BNV) | payer MEDICAID, SELFPAY | PROVIDERS: PCP Internal Medicine; Visit Provider Internal Medicine | DX: G47.10 Hypersomnia, unspecified (principal) | CPT/HCPCS: 95806 ==

== ENCOUNTER 2024-01-31 10:43 | Outpatient (AMB) | payer MEDICAID, SELFPAY ==
[2024-01-31 10:55] VITALS: BP 110/70; PULSE 58; O2SAT 97; BMI 30.9
--- NOTE | 2024-01-31 10:55 | A.OFFVIS_ITS ---
Vital Signs 01/31/24 10:55 Height 5 ft 11.5 in Weight 225 lb BMI 30.9 BP 110/70 Blood Pressure Location Lt brachial Position Sitting Pulse 58 Pulse Source Pulse Oximeter Pulse Oximetry (%) 97 Oxygen Delivery Method Room Air Intake Visit Reasons: Sleep Study Results Taxicab Starter Required: No Allergies No Known Allergies Allergy (Verified 01/31/24 10:57) HPI Comments Details: The patient is a 63-year-old gentleman with a history of tobacco dependency who apparently was in her usual state health until back in April when he started having some hemoptysis. The patient spontaneously improved in that required any antibiotics at that point. Subsequently June he did undergo CT scan of the chest at [facility] which I personally reviewed with him. He has multiple pulmonary nodules in the left hemithorax and some of them appear to be surrounded by ground-glass. The nodules varying size between 6-9 mm in size. In addition to that in the hilum appears to be some thickening around the distal left mainstem bronchus and the left upper lobe bronchi. This area is will be f ine appears to be thicken with some sites narrowing of the airway. Based on the pulmonary nodules in the abnormal hilar density the patient did undergo a PET scan which we also personally reviewed. It appears that the hilar density had an SUV of 3.1 and also has some lymphadenopathy primarily in the cervical lymph nodes were about also had mild FDG activity. The actual pulmonary nodules may have been some below the accuracy of PET scan but all the nodules were with an SUV of 1.2. One of the nodules actually resolved. His hemoptysis has also resolved. Patient otherwise feels good. His only complaint is when he lays flat he gets short of breath. Moderate severity. He can and his belly and he does a lot better. The patient denies any significant daytime drowsiness. After reviewing all the data I did recommend the patient undergo endobronchial ultrasound bronchoscopy to better address the hilar soft tissue abnormality. Although, the patient is already scheduled to undergo surgery in [place]. In explained to the patient that she was still strongly that patient should undergo some type of visualization of the airways and that should be done by surgeon and should also consider getting microbiology for complete evaluation. The patient is already on Breo and also on rescue inhaler. I did recommend he undergo pulmonary function studies. At this point will have to wait for him to recover after surgery to be able to do them accurately. 12/08/2022 the patient is here for pulmonary follow-up visit. Since we last spoke he did follow-up with thoracic surgery. He underwent initially a resection I believe a wedge resection. I do not have the postop report at this time. And pathology was sent. Ultimately was stating the hospital had worsening hemoptysis and the patient was then taken back to the endoscopy suite in had a bronchoscopy. It was documented the attic growth in the left lower lobe although I do not have the pictures. He had a biopsy done unfortunate resulting in bleeding and therefore likely minimal amount of biopsies that were able to be done. Again I do not have the pathology. His hemoptysis has settled down. In I do not have any other results. Clinically the patient is still having some discomfort from his surgery. I am concerned that he still has is Croke that is potentially blocking part of his airway. Therefore, will have to await for will get the pathology and then reimage the area. He may need a repeat bronchoscopy to assess the area as well. The patient ultimately may need additional interventions to remove any growth there may be impacting his airway patency. From a respiratory status doing well we did go for brief walking oximetry was able to maintain a pulse ox 95%. 02/03/2023 the patient is here for a pulmonary follow-up visit. He has been complaining worsening dyspnea. Moderate severity. Worse when he lays flat. Typically during the day he feels okay. He has been using the inhaler Trelegy with good response. He denies any lower extremity edema. Patient denies any further hemoptysis. Unfortunately, we have not received all the pathology from her into the hospital. The patient did undergo initially thoracotomy and did have a biopsy of left hilar density. Apparently speaking to the thoracic surgeon this was not cancer. It is described as a interstitial lung disease. However, we will need the pathology to further address the type of interstitial lung disease. In addition to that he did have the bronchoscopy that demonstrated the endobronchial lesion that appeared to demonstrate an area of fibro inflammatory disease. No evidence of any granulomas. On examination he did have diminished breath sounds at the left base along with some crackles. I did request a chest x-ray and demonstrated an elevated left hemidiaphragm with some slight haziness in the left base. No evidence of any definitive pleural effusion there. While we wait for the pathology results will go ahead a req uest blood work to assess secondary causes for underlying interstitial lung disease. The patient will also start a short course of prednisone and will continue with respiratory therapy. In view of the crackles will also treating for a lower respiratory infection. The patient will return with a chest x-ray. Ultimately once the review the pathology able to will decide when to repeat his CT scan. the patient also will need to have pulmonary function studies when he returns. 10/18/2023 the patient is here for a pulmonary follow-up visit. Overall he is breathing some better. He has been cutting down the smoking which is excellent. Denies any hemoptysis. Still having some shortness breath with activity. [id number] severity. The patient has been responding well to the Breo inhaler. Not sure why he has not on long-acting muscarinic antagonist. He does have severe COPD. Therefore will add the Incruse to the Breo. He tolerates that well then we can also consider switching over to Trelegy. In regards to the pulmonary nodules, his last CT scan was back in the winter of 2022. It then followed up with a PET scan which demonstrated minimal activity. He is due for another CT scan specially with the size of the pulmonary nodules. The patient also has having daytime drowsiness. His [place] score is elevated 11/24. He did undergo home sleep study but it did not record enough data so therefore he is going to have a repeat study at this time. The patient follow-up in 3 months and we can view both the CT scan his sleep study. If he has not issues prior to that he will call for an earlier assessment. 01/18/2024 the patient is here for a pulmonary follow-up visit. Overall he is doing about the same. He still smoking about 7-8 cigarettes a day. We did talk about his CT scan that he had in 12/10/2023. Appears to have pulmonary nodules in the left upper lobe. Unfortunately this CT scan was done here was not compared to the CT scans in the PET scan done at [facility]. We did compare it appears to be waxing and waning. Patient does have postoperative changes now since he has had with wedge resection of the largest nodule this was done at the [facility]. 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 In addition to that he had a bronchoscopy with biopsies demonstrating areas of chronic inflammation and scarring. No evidence of any malignancy with either the wedge resection or the bronchoscopy. Therefore, although he has underlying pulmonary nodules that are slightly greater than cm in size. I think it is reasonable to work on the smoking since allow these changes are smoking-related and hopefully we see improvement. He is willing to try Chantix at this time. He also successful with hypnosis in the past. Will go ahead and start Chantix monitor closely for any depressive symptoms. Hopefully we can get him to quit and will go ahead and plan to repeat the CT scan sometime in 05/11/2024 with hopes that we see improvement of those waxing and waning nodular densities. 01/31/2024 the patient is here for a pulmonary follow-up visit. The patient has been having difficulties with sleep. He has significant daytime drowsiness. His [place] score is elevated 11/24. He was diagnosed sleep apnea in the past. He did have a old CPAP machine that was very affecting beneficial for him. Therefore will have him undergo home sleep study. The home sleep study was not helpful. He had hard time sleeping. It was not accurate. His AHI was only 1 in he still continues have significant daytime drowsiness. He also has 2 atrial fibrillation. For that reason the fact that his home sleep study was nondiagnostic and has a cardiac arrhythmia history will plan to do an in-lab sleep study in order to better characterize his degree of sleep apnea and started on CPAP therapy. The patient also will be evaluated with a repeat CT scan in the coming months. [facility] Medical History (Updated 01/31/24 @ 21:38 by Philippe Palumbo MD) Atrial fibrillation JESUS (obstructive sleep apnea) ILD (interstitial lung disease) Tobacco dependence Emphysema lung Pulmonary nodules Hilar density Social History (Updated 12/08/22 @ 10:01 by CHRISTIANO Lopez) Patient Tobacco Use Status: Current everyday Tobacco user Tobacco use type: Cigarette and Cigar Cigarettes Per Day: 4 Years Smoked: 40 Years Review of Systems Const Reports daytime sleepiness, Reports snoring and Denies weight loss Eyes Denies blurry vision ENT Denies bleeding gums and Denies epistaxis Card Denies chest pain and Reports dyspnea on exertion Resp Denies change in phlegm color, Reports cough, Denies hemoptysis, Reports dyspnea on exertion and Reports snoring GI Reports no additional complaints Musc Reports no additional complaints Skin/Breast Denies rash Neuro Reports no additional complaints Endo Reports no additional complaints Prem/Lymph Denies easy bleeding, Denies easy bruising and Denies lymphadenopathy Aller/Immun Reports no additional complaints Physical Exam Vital Signs: Last Vital Signs Pulse 58 01/31/24 10:55 BP 110/70 01/31/24 10:55 Pulse Ox 97 01/31/24 10:55 Oxygen Delivery Method Room Air 01/31/24 10:55 BMI result Body Mass Index 30.9 Const General: comfortable HEENT Head: Yes normocephalic Neck Neck: Yes supple Chest Chest palpation & inspection: normal inspection of the chest Resp Effort & Inspection: normal respiratory effort Auscultation: diminished lung sounds on the left in the lower lung kim Cardio Rate: regular rate Rhythm: regular rhythm Heart sounds: S1 normal heart sound present and S2 normal heart sound present GI Palpation (GI): Soft to palpation Extrem General: Yes no clubbing, cyanosis or edema Assessment & Plan Assessment & Plan (1) Hilar density: Code(s): J98.4 - Other disorders of lung Category: Medical (2) Pulmonary nodules: Comment: PET 07/2023 with mild activity s/p bronchoscopy with biopsy and wedge resection both negative for CA Code(s): R91.8 - Other nonspecific abnormal finding of lung field Category: Medical (3) Emphysema lung: Code(s): J43.9 - Emphysema, unspecified Category: Medical Qualifiers: Emphysema type: centrilobular Qualified Code(s): J43.2 - Centrilobular emphysema (4) Tobacco dependence: Code(s): F17.200 - Nicotine dependence, unspecified, uncomplicated Category: Medical (5) ILD (interstitial lung disease): Comment: DIP based on biopsy Code(s): J84.9 - Interstitial pulmonary disease, unspecified Category: Medical (6) JESUS (obstructive sleep apnea): Code(s): G47.33 - Obstructive sleep apnea (adult) (pediatric) Category: Medical (7) Atrial fibrillation: Code(s): I48.91 - Unspecified atrial fibrillation Category: Medical Qualifiers: Atrial fibrillation type: unspecified Qualified Code(s): I48.91 - Unspecified atrial fibrillation Plan Repeat CT chest 04/2024 in lab PSG to assess JESUS. Home PSG was not diagnostic. continue Breo continue Incruse JOHN as needed Tobacco cessation, Chantix starter pack, then should continue maintenace F/U 04/[address] chest Orders: Orders RT PSG in-lab sleep study Today G47.33 - Obstructive sleep apnea (adult) (pediatric), I48.91 - Unspecified atrial fibrillation Coding Level of Care Code Est Pt Level 4 (80682) Diagnoses Hilar density J98.4 Pulmonary nodules R91.8 Centrilobular emphysema J43.2 Emphysema type: centrilobular Tobacco dependence F17.200 ILD (interstitial lung disease) J84.9 JESUS (obstructive sleep apnea) G47.33 Atrial fibrillation, unspecified type I48.91 Atrial fibrillation type: unspecified Time Spent (min) 16
== END 2024-01-31 11:11 | disposition home or self-care (01) ==
PROVIDERS: PCP Internal Medicine; Referring Provider Internal Medicine; Visit Provider Hospitalist
DX: J98.4 Other disorders of lung (principal); R91.8 Other nonspecific abnormal finding of lung field; J43.2 Centrilobular emphysema; F17.200 Nicotine dependence, unspecified, uncomplicated; J84.9 Interstitial pulmonary disease, unspecified; G47.33 Obstructive sleep apnea (adult) (pediatric); I48.91 Unspecified atrial fibrillation
CPT/HCPCS: 99214

== ENCOUNTER → 2024-01-31 10:43 | Outpatient (BNVA) | payer MEDICAID, SELFPAY | PROVIDERS: PCP Internal Medicine; Visit Provider Hospitalist | DX: G47.33 Obstructive sleep apnea (adult) (pediatric) (principal); J98.4 Other disorders of lung; J43.2 Centrilobular emphysema; J84.9 Interstitial pulmonary disease, unspecified; R91.8 Other nonspecific abnormal finding of lung field; I48.91 Unspecified atrial fibrillation; F17.210 Nicotine dependence, cigarettes, uncomplicated | CPT/HCPCS: 99212 ==

== ENCOUNTER → 2024-03-01 20:30 | Outpatient (REF) | payer MEDICAID, SELFPAY | LOC: HO.SL 20:30 | PROVIDERS: PCP Internal Medicine; Visit Provider Hospitalist | DX: I48.91 Unspecified atrial fibrillation (principal); G47.33 Obstructive sleep apnea (adult) (pediatric) | CPT/HCPCS: 95810 ==

== ENCOUNTER → 2024-03-01 22:08 | Outpatient (BNV) | payer MEDICAID, SELFPAY | PROVIDERS: PCP Internal Medicine; Visit Provider Internal Medicine | DX: G47.33 Obstructive sleep apnea (adult) (pediatric) (principal) | CPT/HCPCS: 95810 ==

== ENCOUNTER 2024-04-23 09:49 | Outpatient (REF) | payer MEDICAID, SELFPAY | END 2024-04-23 09:50 | disposition home or self-care (01) | LOC: HO.CT 09:49 | PROVIDERS: PCP Internal Medicine; Visit Provider Hospitalist | DX: R91.8 Other nonspecific abnormal finding of lung field (principal) | CPT/HCPCS: 71250 ==

== ENCOUNTER → 2024-04-23 09:50 | Outpatient (BNV) | payer MEDICAID, SELFPAY | PROVIDERS: PCP Internal Medicine; Visit Provider Radiology Diagnostic Radiology | DX: R91.1 Solitary pulmonary nodule (principal) | CPT/HCPCS: 71250 ==

== ENCOUNTER 2024-05-25 10:41 | Outpatient (AMB) | payer MEDICAID, SELFPAY ==
[2024-05-25 10:56] VITALS: BP 118/70; PULSE 48; O2SAT 95; BMI 33.7
--- NOTE | 2024-05-25 10:56 | A.OFFVIS_ITS ---
Vital Signs 05/25/24 10:56 Height 5 ft 11.5 in Weight 244 lb 11.41 oz BMI 33.7 BP 118/70 Blood Pressure Location Lt brachial Position Sitting Pulse 48 L Pulse Source Pulse Oximeter Pulse Oximetry (%) 95 Oxygen Delivery Method Room Air Intake Visit Reasons: Sleep apnea Pediatric Geneticist Required: No Allergies No Known Allergies Allergy (Verified 05/25/24 11:00) HPI Comments Details: The patient is a 64-year-old gentleman with a history of tobacco dependency who apparently was in her usual state health until back in April when he started having some hemoptysis. The patient spontaneously improved in that required any antibiotics at that point. Subsequently June he did undergo CT scan of the chest at [facility] which I personally reviewed with him. He has multiple pulmonary nodules in the left hemithorax and some of them appear to be surrounded by ground-glass. The nodules varying size between 6-9 mm in size. In addition to that in the hilum appears to be some thickening around the distal left mainstem bronchus and the left upper lobe bronchi. This area is will be fine appears to be thicken with some sites narrowing of the airway. Based on the pulmonary nodules in the abnormal hilar density the patient did undergo a PET scan which we also personally reviewed. It appears that the hilar density had an SUV of 3.1 and also has some lymphadenopathy primarily in the cervical lymph nodes were about also had mild FDG activity. The actual pulmonary nodules may have been some below the accuracy of PET scan but all the nodules were with an SUV of 1.2. One of the nodules actually resolved. His hemoptysis has also resolved. Patient otherwise feels good. His only complaint is when he lays flat he gets short of breath. Moderate severity. He can and his belly and he does a lot better. The patient denies any significant daytime drowsiness. After reviewing all the data I did recommend the patient undergo endobronchial ultrasound bronchoscopy to better address the hilar soft tissue abnormality. Although, the patient is already scheduled to undergo surgery in [place]. In explained to the patient that she was still strongly that patient should undergo some type of visualization of the airways and that should be done by surgeon and should also consider getting microbiology for complete evaluation. The patient is already on Breo and also on rescue inhaler. I did recommend he undergo pulmonary function studies. At this point will have to wait for him to recover after surgery to be able to do them accurately. 12/08/2022 the patient is here for pulmonary follow-up visit. Since we last spoke he did follow-up with thoracic surgery. He underwent initially a resection I believe a wedge resection. I do not have the postop report at this time. And pathology was sent. Ultimately was stating the hospital had worsening hemoptysis and the patient was then taken back to the endoscopy suite in had a bronchoscopy. It was documented the attic growth in the left lower lobe although I do not have the pictures. He had a biopsy done unfortunate resulting in bleeding and therefore likely minimal amount of biopsies that were able to be done. Again I do not have the pathology. His hemoptysis has settled down. In I do not have any other results. Clinically the patient is still having some discomfort from his surgery. I am concerned that he still has is Croke that is potentially blocking part of his airway. Therefore, will have to await for will get the pathology and then reimage the area. He may need a repeat bronchoscopy to assess the area as well. The patient ultimately may need additional interventions to remove any growth there may be impacting his airway patency. From a respiratory status doing well we did go for brief walking oximetry was able to maintain a pulse ox 95%. 02/03/2023 the patient is here for a pulmonary follow-up visit. He has been complaining worsening dyspnea. Moderate severity. Worse when he lays flat. Typically during the day he feels okay. He has been using the inhaler Trelegy with good response. He denies any lower extremity edema. Patient denies any further hemoptysis. Unfortunately, we have not received all the pathology from her into the hospital. The patient did undergo initially thoracotomy and did have a biopsy of left hilar density. Apparently speaking to the thoracic surgeon this was not cancer. It is described as a interstitial lung disease. However, we will need the pathology to further address the type of interstitial lung disease. In addition to that he did have the bronchoscopy that demonstrated the endobronchial lesion that appeared to demonstrate an area of fibro inflammatory disease. No evidence of any granulomas. On examination he did have diminished breath sounds at the left base along with some crackles. I did request a chest x-ray and demonstrated an elevated left hemidiaphragm with some slight haziness in the left base. No evidence of any definitive pleural effusion there. While we wait for the pathology results will go ahead a request blood work to assess secondary causes for underlying interstitial lung disease. The patient will also start a short course of prednisone and will continue with respiratory therapy. In view of the crackles will also treating for a lower respiratory infection. The patient will return with a chest x-ray. Ultimately once the review the pathology able to will decide when to repeat his CT scan. the patient also will need to have pulmonary function studies when he returns. 10/18/2023 the patient is here for a pulmonary follow-up visit. Overall he is breathing some better. He has been cutting down the smoking which is excellent. Denies any hemoptysis. Still having some shortness breath with activity. [id number] severity. The patient has been responding well to the Breo inh aler. Not sure why he has not on long-acting muscarinic antagonist. He does have severe COPD. Therefore will add the Incruse to the Breo. He tolerates that well then we can also consider switching over to Trelegy. In regards to the pulmonary nodules, his last CT scan was back in the winter of 2022. It then followed up with a PET scan which demonstrated minimal activity. He is due for another CT scan specially with the size of the pulmonary nodules. The patient also has having daytime drowsiness. His Johnsburg score is elevated 11/24. He did undergo home sleep study but it did not record enough data so therefore he is going to have a repeat study at this time. The patient follow-up in 3 months and we can view both the CT scan his sleep study. If he has not issues prior to that he will call for an earlier assessment. 01/18/2024 the patient is here for a pulmonary follow-up visit. Overall he is doing about the same. He still smoking about 7-8 cigarettes a day. We did talk about his CT scan that he had in 12/10/2023. Appears to have pulmonary nodules in the left upper lobe. Unfortunately this CT scan was done here was not compared to the CT scans in the PET scan done at [facility]. We did compare it appears to be waxing and waning. Patient does have postoperative changes now since he has had with wedge resection of the largest nodule this was done at the [facility] system. 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 In addition to that he had a bronchoscopy with biopsies demonstrating areas of chronic inflammation and scarring. No evidence of any malignancy with either the wedge resection or the bronchoscopy. Therefore, although he has underlying pulmonary nodules that are slightly greater than cm in size. I think it is reasonable to work on the smoking since allow these changes are smoking-related and hopefully we see improvement. He is willing to try Chantix at this time. He also successful with hypnosis in the past. Will go ahead and start Chantix monitor closely for any depressive symptoms. Hopefully we can get him to quit and will go ahead and plan to repeat the CT scan sometime in 05/11/2024 with hopes that we see improvement of those waxing and waning nodular densities. 01/31/2024 the patient is here for a pulmonary follow-up visit. The patient has been having difficulties with sleep. He has significant daytime drowsiness. His Johnsburg score is elevated 11/24. He was diagnosed sleep apnea in the past. He did have a old CPAP machine that was very affecting beneficial for him. Therefore will have him undergo home sleep study. The home sleep study was not helpful. He had hard time sleeping. It was not accurate. His AHI was only 1 in he still continues have significant daytime drowsiness. He also has 2 atrial fibrillation. For that reason the fact that his home sleep study was nondiagnostic and has a cardiac arrhythmia history will plan to do an in-lab sleep study in order to better characterize his degree of sleep apnea and started on CPAP therapy. The patient also will be evaluated with a repeat CT scan in the coming months. 05/26/2024 the patient is here for a pulmonary follow-up visit. Overall he is doing well. He is still using CPAP. Will try to get him a new CPAP. He had a home sleep study which is nondiagnostic and had a in-lab sleep study that we did review. Although he continues to have an elevated Johnsburg score when he does not use CPAP his AHI was only 4.5 unsteady. He did have significant periodic limb movement. Therefore explained to him that this is something that we can treat with medications. We did talk about Neurontin versus ropinirole. He has tried Neurontin in the past therefore be reasonable to see if we can give him Neurontin and potentially higher dose. And if that is done helpful we can try ropinirole. The patient also had a CT scan of the chest. It appears that the nodular densities have decreased in size. A lot more related to DIC. The patient understands the need to quit smoking altogether. He did get a prescription for Chantix but he has not started it as of yet. However, he has been cutting down. Although a lot of the pulmonary nodules have regressed which is reassuring patient does have a new 8 mm pulmonary nodule in the left upper lobe area. Therefore, will have to get another CT scan in 6 months. [facility] Medical History (Updated 05/27/24 @ 22:36 by Philippe Palumbo MD) PLMD (periodic limb movement disorder) Atrial fibrillation JESUS (obstructive sleep apnea) ILD (interstitial lung disease) Tobacco dependence Emphysema lung Pulmonary nodules Hilar density Social History Patient Tobacco Use Status: Current everyday Tobacco user Tobacco use type: Cigarette and Cigar Cigarettes Per Day: 4 Years Smoked: 40 Years Review of Systems Const Reports daytime sleepiness, Reports snoring and Denies weight loss Eyes Denies blurry vision ENT Denies bleeding gums and Denies epistaxis Card Denies chest pain and Reports dyspnea on exertion Resp Denies change in phlegm color, Reports cough, Denies hemoptysis, Reports dyspnea on exertion and Reports snoring GI Reports no additional complaints Musc Reports no additional complaints Skin/Breast Denies rash Neuro Reports no additional complaints Endo Reports no additional complaints Prem/Lymph Denies easy bleeding, Denies easy bruising and Denies lymphadenopathy Aller/Immun Reports no additional complaints Physical Exam Vital Signs: Last Vital Signs Pulse 48 L 05/25/24 10:56 BP 118/70 05/25/24 10:56 Pulse Ox 95 05/25/24 10:56 Oxygen Delivery Method Room Air 05/25/24 10:56 BMI result Body Mass Index 33.7 Const General: comfortable HEENT Head: Yes normocephalic Neck Neck: Yes supple Chest Chest palpation & inspection: normal inspection of the chest Resp Effort & Inspection: normal respiratory effort Auscultation: diminished lung sounds on the left in the lower lung kim Cardio Rate: regular rate Rhythm: regular rhythm Heart sounds: S1 normal heart sound present and S2 normal heart sound present GI Palpation (GI): Soft to palpation Extrem General: Yes no clubbing, cyanosis or edema Assessment & Plan Assessment & Plan (1) Hilar density: Code(s): J98.4 - Other disorders of lung Category: Medical (2) Pulmonary nodules: Comment: PET 07/2023 with mild activity s/p bronchoscopy with biopsy and wedge resection both negative for CA Code(s): R91.8 - Other nonspecific abnormal finding of lung field Category: Medical (3) Emphysema lung: Code(s): J43.9 - Emphysema, unspecified Category: Medical Qualifiers: Emphysema type: centrilobular Qualified Code(s): J43.2 - Centrilobular emphysema (4) Tobacco dependence: Code(s): F17.200 - Nicotine dependence, unspecified, uncomplicated Category: Medical (5) ILD (interstitial lung disease): Comment: DIP based on biopsy Code(s): J84.9 - Interstitial pulmonary disease, unspecified Category: Medical (6) JESUS (obstructive sleep apnea): Code(s): G47.33 - Obstructive sleep apnea (adult) (pediatric) Category: Medical (7) Atrial fibrillation: Code(s): I48.91 - Unspecified atrial fibrillation Category: Medical Qualifiers: Atrial fibrillation type: unspecified Qualified Code(s): I48.91 - Unspecified atrial fibrillation (8) PLMD (periodic limb movement disorder): Code(s): G47.61 - Periodic limb movement disorder Category: Medical Plan Repeat CT chest in 6 months start Gabapentin. Consider Ropinorole in lab PSG to assess JESUS with minimal JESUS, but still symptomatic and benefits from APAP. continue Breo continue Incruse JOHN as needed Tobacco cessation, Chantix starter pack, then should continue maintenace F/U [address] chest Orders: Orders CT chest wo IV con 6 Months R91.8 - Other nonspecific abnormal finding of lung field Medications: New gabapentin 600 mg (2 x 300 mg) PO BEDTIME 30 days 60 caps 6RF Coding Level of Care Code Est Pt Level 4 (22967) Diagnoses Hilar density J98.4 Pulmonary nodules R91.8 Centrilobular emphysema J43.2 Emphysema type: centrilobular Tobacco dependence F17.200 ILD (interstitial lung disease) J84.9 JESUS (obstructive sleep apnea) G47.33 Atrial fibrillation, unspecified type I48.91 Atrial fibrillation type: unspecified PLMD (periodic limb movement disorder) G47.61 Time Spent (min) 17
== END 2024-05-25 11:37 | disposition home or self-care (01) ==
PROVIDERS: PCP Internal Medicine; Visit Provider Hospitalist
DX: J98.4 Other disorders of lung (principal); R91.8 Other nonspecific abnormal finding of lung field; J43.2 Centrilobular emphysema; F17.200 Nicotine dependence, unspecified, uncomplicated; J84.9 Interstitial pulmonary disease, unspecified; G47.33 Obstructive sleep apnea (adult) (pediatric); I48.91 Unspecified atrial fibrillation; G47.61 Periodic limb movement disorder
CPT/HCPCS: 99214

== ENCOUNTER → 2024-05-25 10:41 | Outpatient (BNVA) | payer MEDICAID, SELFPAY | PROVIDERS: PCP Internal Medicine; Visit Provider Hospitalist | DX: G47.33 Obstructive sleep apnea (adult) (pediatric) (principal); I48.91 Unspecified atrial fibrillation; G47.61 Periodic limb movement disorder; J98.4 Other disorders of lung; R91.8 Other nonspecific abnormal finding of lung field; J43.2 Centrilobular emphysema; F17.210 Nicotine dependence, cigarettes, uncomplicated | CPT/HCPCS: 99212 ==

== ENCOUNTER 2024-11-26 09:48 | Outpatient (REF) | payer MEDICAID, SELFPAY ==
--- NOTE | ~2024-11-26 | CT_ITS ---
EXAMINATION: CT CHEST WITHOUT CONTRAST CLINICAL INFORMATION: R91.8 - Other nonspecific abnormal finding of lung field COMPARISON: April 23, 2024 TECHNIQUE: Multidetector volumetric CT imaging of the chest was done. Axial MIP volume rendering provided. Sagittal and coronal reformatted images were obtained. This CT examination was performed using dose optimization techniques as appropriate, variously including the following: *Automated exposure control *Adjustment of mA and/or kV according to patient size (this includes techniques or standardized protocols for targeted exams where dose is matched to indication/reason for exam; i.e. extremities or head) *Use of iterative reconstruction technique DLP: 273 mGY*cm FINDINGS: LUNGS: Centrilobular emphysema is noted in the left greater than right upper lobes. Linear scar is evident in the lingula. There is loss of volume in the left lung, postsurgical. Nodules were measured on axial series CT #4. Image 59/194: Anterior segment left upper lobe nodule measures 5 x 8 mm, unchanged. Image 68/194: Anterior segment left upper lobe solid nodule is 4 x 10 mm, previously 7 x 9 mm with a groundglass halo. The groundglass halo has resolved. There was a second nodular density with peripheral groundglass halo in the same region that has resolved. Image 83/194: There is a new solid 4 mm nodule in the lingula that was not clearly present on the prior. MEDIASTINUM: Surgical clips are present along the left side of the mediastinum. There is no adenopathy. CORONARY ARTERY CALCIFICATION: Present PLEURA: There is no pleural effusion. No pleural mass or thickening. AXILLA: No lymphadenopathy. UPPER ABDOMEN: Simple renal cysts are present in the upper left kidney. No change. OSSEOUS STRUCTURES: Unremarkable CT/CT chest wo IV con IMPRESSION: On the prior examination, there were 2 part solid nodules with peripheral groundglass density and central solid nodules. One of the nodules has resolved, one of the nodules the groundglass component has resolved but the solid component persists. Additionally, there is a new 4 mm nodule in the lingula. Fleischner Society recommends annual CT for 5 years for part solid nodules with a solid component average diameter 6 mm or more. Fleischner guidelines were followed. Electronically signed by: Marvel Valdivia MD 11/26/2024 11:31 AM EDT
--- OUTSIDE RECORDS SUMMARY | 2024-11-26 10:21 | XMS_ITS ---
Author Name [facility] Organization Unknown Care Team Organization Name Specialty Phone Email Start Date End [facility] 10/06/2022
--- OUTSIDE RECORDS SUMMARY | 2024-11-26 10:21 | XMS_ITS | Clinical Summary ---
Author Organization [facility] Address [address] [place] [address] Phone Care Team Providers Care [employer] Name Role Phone Vinny Flowers DO Primary Care Provider Allergies Active Allergy Reactions Criticality Noted Date Comments Bee Venom Protein (Honey Bee) 2020 Wasp Venom Swelling High 04/09/2021 Medications atorvastatin (LIPITOR) 10 mg tablet Take 1 tablet (10 mg total) by mouth 1 (one) time each day. 2024 Active fluticasone furoate-vilante roL (BREO ELLIPTA) 100-25 mcg/dose inhaler Inhale into the lungs. Unsure of dose at this time. Active gabapentin (NEURONTIN) 300 mg capsule Take 2 capsules (600 mg total) by mouth at bedtime. Active umeclidinium (Incruse Ellipta) 62.5 mcg/actuation inhalation Inhale 1 puff by mouth 1 (one) time each day. Active aspirin 81 mg EC tablet Take 1 tablet (81 mg total) by mouth 1 (one) time each day. Active nitroglycerin (NITROSTAT) 0.[address] 1 tablet (0.4 mg total) under the tongue every 5 (five) minutes if needed for chest pain. May repeat dose every 5 minutes for up to 3 doses total. 25 tablet 1 07/11/2024 Active amLODIPine (NORVASC) 5 mg tablet Take 1 tablet (5 mg total) by mouth 1 (one) time each day. 90 each 1 09/03/2024 Active carvediloL (COREG) 12.5 mg tablet Take 1 tablet (12.5 mg total) by mouth 2 (two) times a day with meals. 180 tablet 1 10/17/2024 Active Active Problems Problem Noted Date Diagnosed Date Microvascular angina ([facility]) 09/03/2024 Assessment & Plan (09/03/2024 8:38 AM EDT): Patient continues to have exertional chest pain. Recent coronary angiogram did not reveal any obstructive coronary artery disease. Patient is a smoker and this is likely secondary to microvascular angina. I will start him on amlodipine 5 mg once a day and have encouraged him to quit smoking. He will let me know if he develops any lightheadedness or dizziness Hypercholesterolemia 09/28/2022 Overview (05/30/2024): Last Assessment & Plan: Patient's last LDL cholesterol was 115. This is at goal. Continue with atorvastatin 10 mg once a day as prescribed. Assessment & Plan (09/03/2024 8:38 AM EDT): Lipid panel from February 2024 reviewed and under acceptable control. Patient will continue with atorvastatin daily as prescribed. Assessment & Plan (06/15/2024 11:01 AM EST): Lipid panel from February 2024 reviewed and under acceptable control. Patient will continue with atorvastatin daily as prescribed. Hypertension 09/28/2022 Overview (05/30/2024): Last Assessment & Plan: Blood pressure is under excellent control with a reading today of 122/82 Assessment & Plan (09/03/2024 8:38 AM EDT): Blood pressures under good control with a reading today of 120/70. He will continue with carvedilol as prescribed. Will be adding amlodipine today as outlined in detail above. Assessment & Plan (06/15/2024 11:01 AM EST): Blood pressure is well-controlled in the office today at 106/72. Will continue with carvedilol but at the lower dose of 12.5 mg twice a day. Atrial fibrillation (CMS/HCC V24, CMS/HCC V28) 0 02/11/2021 Overview (05/30/2024): Last Assessment & Plan: He has history of paroxysmal atrial fibrillation and has had ablations in the past. Earlier this year the patient had thoracic surgery and did have episodes of atrial fibrillation in the postoperative period. He has not had any recurrrent episodes. He continues on carvedilol 25 mg twice daily. His [id number] score is 1 therefore he does not meet criteria for anticoagulation. Assessment & Plan (09/03/2024 8:38 AM EDT): Patient has a history of atrial fibrillation status post radiofrequency ablation of the pulmonary veins, linear radiofrequency ablation of the left atrial roof and mitral isthmus and radiofrequency linear ablation of the tricuspid isthmus in May 2021. He had a recurrence during hospitalization for thoracic surgery in October 2022. He has a [id number] score of 1 and anticoagulation is not indicated at this time . Assessment & Plan (06/15/2024 1:59 PM EST): Patient has a history of atrial fibrillation status post radiofrequency ablation of the pulmonary veins, linear radiofrequency ablation of the left atrial roof and mitral isthmus and radiofrequency linear ablation of the tricuspid isthmus in May 2021. He had a recurrence during hospitalization for thoracic surgery in October 2022. He has a [id number] score of 1 and anticoagulation is not indicated at this time . EKG in the office today showing a slow junctional rhythm rate 50 which is unchanged from prior. Kardia mobile strips reviewed and it is unclear if patient is having paroxysms of atrial fibrillation or possible intermittent conduction abnormalities. He reports dyspnea on exertion he attributes to COPD however it is unclear if his rate could be contributing. Advised patient to reduce carvedilol to 12.5 mg twice a day and will have patient wear a 48-hour Holter monitor to assess for any new heart blocks, heart rate control, and recurrence of atrial fibrillation. Encounters Date Type Department Care Team Description 10/17/2024 Telephone [facility] [address] [place] [address] Briana Lo NP Med Refill 09/03/2024 8:10 AM EDT Office Visit [facility] [address] [place] [address] Briana Lo NP Microvascular angina (CMS/HCC V24) (Primary Dx); Paroxysmal atrial fibrillation (CMS/HCC V24, CMS/HCC V28); Primary hypertension; Hypercholesterolemia from Last 3 Months Surgical History Surgery Date Site/Laterality Comments OTHER SURGICAL HISTORY 07/01/2004 PROCEDURE: HISTORY OTHER; COMMENT: s/p Left empyemectopy with total decortication of the left lung KNEE SURGERY Bilateral PROCEDURE: HISTORICAL KNEE SURGERY; COMMENT: Repair of torn meniscus of knee HERNIA REPAIR PROCEDURE: HISTORICAL HERNIA REPAIR/ING; COMMENT: x2 OTHER SURGICAL HISTORY PROCEDURE: MS ANES CARDIAC ELECTROPHYSIOL STDY W/RF ABLATION; COMMENT: x3 for AFib CARDIAC CATHETERIZATION DONE ON 08/14/2024 AT [facility] [place] [facility] INDICATIONS: Abnormal nuclear perfusion study Medical History Medical History Date Comments Hilar density DX:Hilar density ; COMMENT: with multiple pulmonary nodules Obstructive sleep apnea DX:Obstr uctive sleep apnea Asthma DX:Asthma Chronic sciatica DX:Chronic scia kelly; COMMENT: L4-L5 crowing of nerves Family History Medical History Relation Name Comments Hypertension Brother Hypertension Father Lung cancer Father Hypertension Mother Hypertension Sister Relation Name Status Comments Brother Father Mother Sister Social History Tobacco Use Types Packs/Day Years Used Date Smoking Tobacco: Every Day Cigars Smokeless Tobacco: Never Tobacco Cessation:Ready to Q uit: Not Asked; Counseling Given: Not Answered Comments:3-4 cigars per day Alcohol Use Standard Drinks/Week Comments Not Currently 0 (1 standard drink = 0.6 oz pur e alcohol) Sex and Gender Information Value Date Recorded Sex Assigned at Male 06/18/2024 12:00 PM EST Legal Sex Male 12:51 PM EST Gender Identity Male 06/18/2024 12:00 PM EST Sexual Orientation Straight 06/18/2024 12 :00 PM EST Obstetrics History Last Filed Vital Signs Vital Sign Reading Time Taken Comments Blood Pressure 120/70 09/03/2024 8:03 AM EDT Pulse 51 09/03/2024 8:03 AM EDT Temperature - - Respiratory Rate - - Oxygen Saturation 96% 09/03/2024 8:03 AM EDT Inhaled Oxygen Concentration - - Weight 111 kg (244 lb) 09/03/2024 8:03 AM EDT Height 181.6 cm (5' 11.5 ) 09/03/2024 8:03 AM ED T Body Mass Index 33.56 09/03/2024 8:03 AM EDT Plan of Treatment Upcoming Encounters Date Type Department Care Team (Late st Contact Info) Description 01/07/2025 11:30 AM EDT Office Visit [facility] [address] [place] [address] Briana Lo NP [address] [place] [address] [address] [place] [address] Health Maintenance Due Date Last Done Comments DTaP,Tdap,and Td Vaccines (1 - Tdap) 1981 Pneumococcal Vaccine: 50+ Years (2 of 2 - PCV) 11/02/2010 11/02/2009 Pneumococcal Vaccine: Pediatrics (0 to 5 Years) and At-Risk Patients (6 to 64 Years) (2 of 2 - PCV) 11/02/2010 11/02/2009 Zoster Vaccines (1 of 2) 2012 Cholesterol Screening (Lipid Panel) 05/02/2022 Colorectal Cancer Screening: Colonoscopy 05/02/2022 Depression Screening 05/02/2022 HIV Screening 05/02/2022 Hepatitis C Screening 05/02/2022 Social Influencers of Health Screening 05/02/2022 COVID-19 Vaccine (1 - 2023-2 5 season) 2024 Influenza Vaccine (#1) 2025 Hypertension/CHF/CAD Annual BMP Blood Test 07/11/2025 07/11/2024, 06/15/2024 RSV Immunization Adult Patients (1 - 1-dose 75+ series) 2037 HIB Vaccines Aged Out No longer eligi ble based on patient's age to complete this topic HPV Vaccines Aged Out No longer eligi ble based on patient's age to complete this topic Hepatitis A Vaccines Aged Out No long er eligible based on patient's age to complete this topic Hepatitis B Vaccines Aged Out No long er eligible based on patient's age to complete this topic IPV Vaccines Aged Out No longer eligi ble based on patient's age to complete this topic MMR Vaccines Aged Out No longer eligi ble based on patient's age to complete this topic Meningococcal ACWY Vaccine Aged Out N o longer eligible based on patient's age to complete this topic Meningococcal B Vaccine Aged Out No l onger eligible based on patient's age to complete this topic RSV Immunization Patients Under 20 months Aged Out No longer eligible b ased on patient's age to complete this topic Varicella Vaccines Aged Out No longer eligible based on patient's age to complete this topic Procedures Procedure Name Priority Date/Time Associated Diagnosis Comments BASIC METABOLIC PANEL Routine 07/11/2024 11:32 AM EST from Last 3 Months or Most Recently Relevant to Health Maintenance Results * Basic metabolic panel (07/11/2024 11:32 AM EST) Glucose 98 70 - 99 MG/DL [facility] Blood Urea Nitrogen (BUN) 21 8 - 23 MG/DL [facility] Creatinine 1.04 0.7 - 1.2 MG/DL [facility] 1 eGFR 81 ML/MIN/1.7 3 M2 [facility] 1 Comment: Creatinine based estimated glomerular filtration (eGFR) in adults is calculated using the [employer] recommended 2020 CKD-EPI equation. Estimates GFR from serum creatinine, age and sex. Sodium 144 133 - 145 MMOL/L [facility] Potassium 4.1 3.6 - 5.2 MMOL/L [facility] 1 Chloride 107 98 - 107 MMOL/L [facility] 1 Carbon Dioxide 28 22 - 29 MMOL/L [facility] 1 Anion Gap 9 4 - 17 MMOL/L [facility] 1 Calcium 9.8 8.6 - 10.5 MG/DL [facility] 1 07/11/2024 11:3 2 AM EST 07/11/2024 Narrative [facility] 1 - 07/11/2024 4:12 PM EST Performed at: [address] [place] [id number] Assistant Professor Of History: Neo Tuttle MD, Phone: [phone] us Briana Bartolucci UNEMPL[employer] SPECIALIST LAB BLOOD ORDERABLES Final R esult [facility] 1 from Last 3 Months or Most Recently Relevant to Health Maintenance Insurance MEDICAID - [place] Care Teams [employer] Learning Support Teacher Relationship Specialty Start Date End Date Vinny Flowers DO [address] [place] [id number] PCP - General Internal Medicine 06/15/24
== END 2024-11-26 09:49 | disposition home or self-care (01) ==
LOC: HO.CT 09:48
PROVIDERS: PCP Internal Medicine; Visit Provider Hospitalist
DX: R91.8 Other nonspecific abnormal finding of lung field (principal)
CPT/HCPCS: 71250

== ENCOUNTER → 2024-11-26 09:52 | Outpatient (BNV) | payer MEDICAID, SELFPAY | PROVIDERS: PCP Internal Medicine; Visit Provider Radiology Diagnostic Radiology | DX: R91.8 Other nonspecific abnormal finding of lung field (principal) | CPT/HCPCS: 71250 ==

== ENCOUNTER 2024-11-30 10:49 | Outpatient (AMB) | payer MEDICAID, SELFPAY ==
[2024-11-30 10:50] VITALS: BP 120/68; PULSE 62; O2SAT 95; BMI 33.2
--- NOTE | 2024-11-30 10:50 | A.OFFVIS_ITS ---
Vital Signs 11/30/24 10:50 Height 5 ft 11.5 in Weight 241 lb 6.499 oz BMI 33.2 BP 120/68 Blood Pressure Location Lt brachial Position Sitting Pulse 62 Pulse Source Pulse Oximeter Pulse Oximetry (%) 95 Oxygen Delivery Method Room Air Intake Visit Reasons: jesus Accompanied by: Self / Same As Patient Allergies No Known Allergies Allergy (Verified 11/30/24 10:54) HPI Comments Details: The patient is a 64-year-old gentleman with a history of tobacco dependency who apparently was in her usual state health until back in April when he started having some hemoptysis. The patient spontaneously improved in that required any antibiotics at that point. Subsequently June he did undergo CT scan of the chest at [facility] which I personally reviewed with him. He has multiple pulmonary nodules in the left hemithorax and some of them appear to be surrounded by ground-glass. The nodules varying size between 6-9 mm in size. In addition to that in the hilum appears to be some thickening around the distal left mainstem bronchus and the left upper lobe bronchi. This area is will be fine appears to be thicken with some sites narrowing of the airway. Based on the pulmonary nodules in the abnormal hilar density the patient did undergo a PET scan which we also personally reviewed. It appears that the hilar density had an SUV of 3.1 and also has some lymphadenopathy primarily in the cervical lymph nodes were about also had mild FDG activity. The actual pulmonary nodules may have been some below the accuracy of PET scan but all the nodules were with an SUV of 1.2. One of the nodules actually resolved. His hemoptysis has also resolved. Patient otherwise feels good. His only complaint is when he lays flat he gets short of breath. Moderate severity. He can and his belly and he does a lot better. The patient denies any significant daytime drowsiness. After reviewing all the data I did recommend the patient undergo endobronchial ultrasound bronchoscopy to better address the hilar soft tissue abnormality. Although, the patient is already scheduled to undergo surgery in [place]. In explained to the patient that she was still strongly that patient should undergo some type of visualization of the airways and that should be done by surgeon and should also consider getting microbiology for complete evaluation. The patient is already on Breo and also on rescue inhaler. I did recommend he undergo pulmonary function studies. At this point will have to wait for him to recover after surgery to be able to do them accurately. 12/08/2022 the patient is here for pulmonary follow-up visit. Since we last spoke he did follow-up with thoracic surgery. He underwent initially a resection I believe a wedge resection. I do not have the postop report at this time. And pathology was sent. Ultimately was stating the hospital had worsening hemoptysis and the patient was then taken back to the endoscopy suite in had a bronchoscopy. It was documented the attic growth in the left lower lobe although I do not have the pictures. He had a biopsy done unfortunate resulting in bleeding and therefore likely minimal amount of biopsies that were able to be done. Again I do not have the pathology. His hemoptysis has settled down. In I do not have any other results. Clinically the patient is still having some discomfort from his surgery. I am concerned that he still has is Croke that is potentially blocking part of his airway. Therefore, will have to await for will get the pathology and then reimage the area. He may need a repeat bronchoscopy to assess the area as well. The patient ultimately may need additional interventions to remove any growth there may be impacting his airway patency. From a respiratory status doing well we did go for brief walking oximetry was able to maintain a pulse ox 95%. 02/03/2023 the patient is here for a pulmonary follow-up visit. He has been complaining worsening dyspnea. Moderate severity. Worse when he lays flat. Typically during the day he feels okay. He has been using the inhaler Trelegy with good response. He denies any lower extremity edema. Patient denies any further hemoptysis. Unfortunately, we have not received all the pathology from her into the hospital. The patient did undergo initially thoracotomy and did have a biopsy of left hilar density. Apparently speaking to the thoracic surgeon this was not cancer. It is described as a interstitial lung disease. However, we will need the pathology to further address the type of interstitial lung disease. In addition to that he did have the bronchoscopy that demonstrated the endobronchial lesion that appeared to demonstrate an area of fibro inflammatory disease. No evidence of any granulomas. On examination he did have diminished breath sounds at the left base along with some crackles. I did request a chest x-ray and demonstrated an elevated left hemidiaphragm with some slight haziness in the left base. No evidence of any definitive pleural effusion there. While we wait for the pathology results will go ahead a request blood work to assess secondary causes for underlying interstitial lung disease. The patient will also start a short course of prednisone and will continue with respiratory therapy. In view of the crackles will also treating for a lower respiratory infection. The patient will return with a chest x-ray. Ultimately once the review the pathology able to will decide when to repeat his CT scan. the patient also will need to have pulmonary function studies when he returns. 10/18/2023 the patient is here for a pulmonary follow-up visit. Overall he is breathing some better. He has been cutting down the smoking which is excellent. Denies any hemoptysis. Still having some shortness breath with activity. [id number] severity. The patient has been responding well to the Breo inhaler. Not sure why he has not on long-acting muscarinic antagonist. He does have severe COPD. Therefore will add the Incruse to the Breo. He tolerates that well then we can also consider switching over to Trelegy. In regards to the pulmonary nodules, his last CT scan was back in the winter of 2022. It then followed up with a PET scan which demonstrated minimal activity. He is due for another CT scan specially with the size of the pulmonary nodules. The patient also has having daytime drowsiness. His [place] score is elevated 11/24. He did undergo home sleep study but it did not record enough data so therefore he is going to have a repeat study at this time. The patient follow-up in 3 months and we can view both the CT scan his sleep study. If he has not issues prior to that he will call for an earlier assessment. 01/18/2024 the patient is here for a pulmonary follow-up visit. Overall he is doing about the same. He still smoking about 7-8 cigarettes a day. We did talk about his CT scan that he had in 12/10/2023. Appears to have pulmonary nodules in the left upper lobe. Unfortunately this CT scan was done here was not compared to the CT scans in the PET scan done at [facility]. We did compare it appears to be waxing and waning. Patient does have postoperative changes now since he has had with wedge resection of the largest nodule this was done at the [facility]. 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 In addition to that he had a bronchoscopy with biopsies demonstrating areas of chronic inflammation and scarring. No evidence of any malignancy with either the wedge resection or the bronchoscopy. Therefore, although he has underlying pulmonary nodules that are slightly greater than cm in size. I think it is reasonable to work on the smoking since allow these changes are smoking-related and hopefully we see improvement. He is willing to try Chantix at this time. He also successful with hypnosis in the past. Will go ahead and start Chantix monitor closely for any depressive symptoms. Hopefully we can get him to quit and will go ahead and plan to repeat the CT scan sometime in 05/11/2024 with hopes that we see improvement of those waxing and waning nodular densities. 01/31/2024 the patient is here for a pulmonary follow-up visit. The patient has been having difficulties with sleep. He has significant daytime drowsiness. His [place] score is elevated 11/24. He was diagnosed sleep apnea in the past. He did have a old CPAP machine that was very affecting beneficial for him. Therefore will have him undergo home sleep study. The home sleep study was not helpful. He had hard time sleeping. It was not accurate. His AHI was only 1 in he still continues have significant daytime drowsiness. He also has 2 atrial fibrillation. For that reason the fact that his home sleep study was nondiagnostic and has a cardiac arrhythmia history will plan to do an in-lab sleep study in order to better characterize his degree of sleep apnea and started on CPAP therapy. The patient also will be evaluated with a repeat CT scan in the coming months. 05/26/2024 the patient is here for a pulmonary follow-up visit. Overall he is doing well. He is still using CPAP. Will try to get him a new CPAP. He had a home sleep study which is nondiagnostic and had a in-lab sleep study that we did review. Although he continues to have an elevated [place] score when he does not use CPAP his AHI was only 4.5 unsteady. He did have significant periodic limb movement. Therefore explained to him that this is something that we can treat with medications. We did talk about Neurontin versus ropinirole. He has tried Neurontin in the past therefore be reasonable to see if we can give him Neurontin and potentially higher dose. And if that is done helpful we can try ropinirole. The patient also had a CT scan of the chest. It appears that the nodular densities have decreased in size. A lot more related to DIC. The patient understands the need to quit smoking altogether. He did get a prescription for Chantix but he has not started it as of yet. However, he has been cutting down. Although a lot of the pulmonary nodules have regressed which is reassuring patient does have a new 8 mm pulmonary nodule in the left upper lobe area. Therefore, will have to get another CT scan in 6 months. 11/30/2024 the patient is here for a pulmonary follow-up visit. Overall the patient has been doing well. He just got back from [place]. Respiratory arriaza seems to be doing okay he felt like he was breathing better in [place]. Now that his back in the [place] starts quickly feeling the chest tightness in the shortness of breath. The patient unfortunately continues to smoke cigarettes. 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 In the meantime he did have a CT scan of the chest that I personally reviewed. It appears that some of the pulmonary nodules have subsided it resolved completely. Still has a couple persistent subsolid pulmonary nodules that will need continued follow-up. Will plan to follow-up in 6-8 months with another CAT scan and then follow-up to review. In the meantime CPAP arriaza he does have an old CPAP that needs to be adjusted. We will bringing into the office at some point so I can adjust the pressure so he can use it. For now she will continue with positional therapy to minimize snoring. [facility] Medical History (Updated 05/27/24 @ 22:36 by Philippe Palumbo MD) PLMD (periodic limb movement disorder) Atrial fibrillation JESUS (obstructive sleep apnea) ILD (interstitial lung disease) Tobacco dependence Emphysema lung Pulmonary nodules Hilar density Social History Patient Tobacco Use Status: Current everyday Tobacco user Tobacco use type: Cigarette and Cigar Cigarettes Per Day: 4 Years Smoked: 40 Years Review of Systems Const Reports daytime sleepiness, Reports snoring and Denies weight loss Eyes Denies blurry vision ENT Denies bleeding gums and Denies epistaxis Card Denies chest pain and Reports dyspnea on exertion Resp Denies change in phlegm color, Reports cough, Denies hemoptysis, Reports dyspnea on exertion and Reports snoring GI Reports no additional complaints Musc Reports no additional complaints Skin/Breast Denies rash Neuro Reports no additional complaints Endo Reports no additional complaints Prem/Lymph Denies easy bleeding, Denies easy bruising and Denies lymphadenopathy Aller/Immun Reports no additional complaints Physical Exam Vital Signs: Last Vital Signs Pulse 62 11/30/24 10:50 BP 120/68 11/30/24 10:50 Pulse Ox 95 11/30/24 10:50 Oxygen Delivery Method Room Air 11/30/24 10:50 BMI result Body Mass Index 33.2 Const General: comfortable HEENT Head: Yes normocephalic Neck Neck: Yes supple Chest Chest palpation & inspection: normal inspection of the chest Resp Effort & Inspection: normal respiratory effort Auscultation: diminished lung sounds on the left in the lower lung kim Cardio Rate: regular rate Rhythm: regular rhythm Heart sounds: S1 normal heart sound present and S2 normal heart sound present GI Palpation (GI): Soft to palpation Extrem General: Yes no clubbing, cyanosis or edema Assessment & Plan Assessment & Plan (1) Hilar density: Code(s): J98.4 - Other disorders of lung Category: Medical (2) Pulmonary nodules: Comment: PET 07/2023 with mild activity s/p bronchoscopy with biopsy and wedge resection both negative for CA Code(s): R91.8 - Other nonspecific abnormal finding of lung field Category: Medical (3) Emphysema lung: Code(s): J43.9 - Emphysema, unspecified Category: Medical Qualifiers: Emphysema type: centrilobular Qualified Code(s): J43.2 - Centrilobular emphysema (4) Tobacco dependence: Code(s): F17.200 - Nicotine dependence, unspecified, uncomplicated Category: Medical (5) ILD (interstitial lung disease): Comment: DIP based on biopsy Code(s): J84.9 - Interstitial pulmonary disease, unspecified Category: Medical (6) JESUS (obstructive sleep apnea): Code(s): G47.33 - Obstructive sleep apnea (adult) (pediatric) Category: Medical (7) Atrial fibrillation: Code(s): I48.91 - Unspecified atrial fibrillation Category: Medical Qualifiers: Atrial fibrillation type: unspecified Qualified Code(s): I48.91 - Unspecified atrial fibrillation (8) PLMD (periodic limb movement disorder): Code(s): G47.61 - Periodic limb movement disorder Category: Medical Plan Repeat CT chest in 6 months Gabapentin. Consider Ropinorole in lab PSG to assess JESUS with minimal JESUS, but still symptomatic and benefits from APAP. continue Breo continue Incruse JOHN as needed Tobacco cessation, Chantix starter pack, then should continue maintenace F/U [address] chest Orders: Orders CT chest wo IV con 6 Months R91.8 - Other nonspecific abnormal finding of lung field Coding Level of Care Code Est Pt Level 4 (72372) Diagnoses Hilar density J98.4 Pulmonary nodules R91.8 Centrilobular emphysema J43.2 Emphysema type: centrilobular Tobacco dependence F17.200 ILD (interstitial lung disease) J84.9 JESUS (obstructive sleep apnea) G47.33 Atrial fibrillation, unspecified type I48.91 Atrial fibrillation type: unspecified PLMD (periodic limb movement disorder) G47.61 Time Spent (min) 17
--- OUTSIDE RECORDS SUMMARY | 2024-11-30 11:27 | XMS_ITS | Clinical Summary ---
Author Organization [facility] Address [address] [place] [address] Phone Care Team Providers Care [employer] M[employer] Developer Name Role Phone Vinny Flowers DO Primary Care Provider [phone] Allergies Active Allergy Reactions Criticality Noted Date [...] Problem Noted Date Diagnosed Date Microvascular angina (CMS/[facility] V24) 09/03/2024 Assessment & Plan (09/03/2024 8:38 [...] on carvedilol 25 mg twice daily. His [id number] score is 1 therefore he does not [...] surgery in October 2022. He has a [id number] score of 1 and anticoagulation is not [...] surgery in October 2022. He has a [id number] score of 1 and anticoagulation is not [...] Type Department Care Team Description 10/17/2024 Telephone [facility] [address] [facility] [address] [place] [address] Briana Lo NP Med Refill 09/03/2024 8:10 AM EDT Office Visit [facility] [address] [place] [address] Briana Lo NP Microvascular angina (CMS/HCC V24) [...] REPAIR/ING; COMMENT: x2 OTHER SURGICAL HISTORY PROCEDURE: OR ANES CARDIAC ELECTROPHYSIOL STDY W/RF ABLATION; COMMENT: x3 for AFib CARDIAC CATHETERIZATION DONE ON 08/14/2024 AT [facility] INDICATIONS: Abnormal nuclear perfusion study Medical History [...] Description 01/07/2025 11:30 AM EDT Office Visit [facility] [address] [facility] [address] [place] [address] Briana oL NP [address] [place] [address] [address] [place] [address] Health Maintenance Due Date Last Done Comments DTaP,Tdap,and Td Vaccines (1 - Tdap) 1979 Pneumococcal Vaccine: 50+ Years (2 of 2 - PCV) 11/02/2010 11/02/2009 Pneumococcal Vaccine: Pediatrics (0 to 5 Years) and At-Risk Patients (6 to 49 Years) (2 of 2 - PCV) 11/02/2010 [...] - 07/11/2024 4:12 PM EST Performed at: [address] [place] [id number] Color Shop Helper: Neo Tuttle MD, Phone: [phone] us Briana Bartolucci EVENT PLANNER LAB BLOOD ORDERABLES Final R esult [facility] 1 from Last 3 Months or Most Recently Relevant to Health Maintenance Insurance MEDICAID - [place] Care Teams Asp [employer] M[employer] Developer Relationship Specialty Start Date End Date Vinny Flowers DO [address] [place] [id number] PCP - General Internal Medicine 06/15/24
== END 2024-11-30 11:12 | disposition home or self-care (01) ==
PROVIDERS: PCP Internal Medicine; Visit Provider Hospitalist
DX: J98.4 Other disorders of lung (principal); R91.8 Other nonspecific abnormal finding of lung field; J43.2 Centrilobular emphysema; F17.200 Nicotine dependence, unspecified, uncomplicated; J84.9 Interstitial pulmonary disease, unspecified; G47.33 Obstructive sleep apnea (adult) (pediatric); I48.91 Unspecified atrial fibrillation; G47.61 Periodic limb movement disorder
CPT/HCPCS: 99214

== ENCOUNTER → 2024-11-30 10:49 | Outpatient (BNVA) | payer MEDICAID, SELFPAY | PROVIDERS: PCP Internal Medicine; Visit Provider Hospitalist | DX: G47.33 Obstructive sleep apnea (adult) (pediatric) (principal); I48.91 Unspecified atrial fibrillation; G47.61 Periodic limb movement disorder; J84.9 Interstitial pulmonary disease, unspecified; F17.200 Nicotine dependence, unspecified, uncomplicated; J43.2 Centrilobular emphysema; J98.4 Other disorders of lung; R91.8 Other nonspecific abnormal finding of lung field | CPT/HCPCS: 99212 ==